=== PATIENT | male | born 1950 | race Caucasian/White ===

== ENCOUNTER 2017-06-24 18:17 | Emergency (ER) | payer OTHER, MEDICARE ==
[~2017-06-24] VITALS: Ht 170.2 cm; Wt 59.4 kg
[~2017-06-24 18:17] MED LIST: ALBU8.5H8 INH; ATOR40TA71 PO; CALC950T2 PO; CHOL400T32 PO; FISH OIL PO; FOLI-43 PO; FOLI0.8T19 PO; FURO80TA87 PO; LOSA100T13 PO; METO25TA6 PO; NOR5T PO; OXYC-658 PO; TERA10CA4 PO
[2017-06-24 20:13] LABS: BASOPHILS % (AUTO) 0.3 % (0-1); EOSINOPHILS # (AUTO) 0.1 X10'3 (0-0.9); EOSINOPHILS % (AUTO) 1.3 % (0-6); HEMATOCRIT 39.1 % (42.0-52.0); HEMOGLOBIN 13.1 g/dl (14.0-17.9); LYMPHOCYTES # (AUTO) 0.7 X10'3 (1.1-4.8); LYMPHOCYTES % (AUTO) 11.1 % (21-51); MEAN CORPUSCULAR HEMOGLOBIN 33.4 PG (27.0-31.0); MEAN CORPUSCULAR HGB CONC 33.5 % (33.0-36.5); MEAN CORPUSCULAR VOLUME 99.7 FL (78-98); MEAN PLATELET VOLUME 7.9 FL (7.4-10.4); MONOCYTES # (AUTO) 0.4 X10'3 (0-0.9); NEUTROPHILS # (AUTO) 4.9 X10'3 (1.8-7.7); NEUTROPHILS % (AUTO) 80.3 % (42-75); PLATELET COUNT 115 X10'3 (140-440); RED BLOOD COUNT 3.92 X10'6 (4.70-6.10); RED CELL DISTRIBUTION WIDTH 16.3 % (11.5-14.5); WHITE BLOOD COUNT 6.1 X10'3 (4.5-11.0)
[2017-06-24 20:23] LABS: INR 1.4 INR; PARTIAL THROMBOPLASTIN TIME 31 SECONDS (22-32); PROTHROMBIN TIME 14.2 SECONDS (9.0-12.0)
[2017-06-24 20:27] LABS: ALANINE AMINOTRANSFERASE 20 U/L (12-78); ALBUMIN 2.6 G/DL (3.4-5.0); ALBUMIN/GLOBULIN RATIO 0.8 (1.1-1.5); ALKALINE PHOSPHATASE 122 IU/L (46-116); ANION GAP 14 (8-16); ASPARTATE AMINO TRANSFERASE 30 U/L (10-37); BILIRUBIN,TOTAL 0.9 MG/DL (0.1-1.0); BLOOD UREA NITROGEN 23 MG/DL (7-18); BUN/CREATININE RATIO 6.1 (5.4-32.0); CHLORIDE 101 MMOL/L (99-107); CREATININE 3.75 MG/DL (0.60-1.10); ETHANOL < 0.010 GM/DL (0.0-0.010); GLUCOSE 92 MG/DL (70-104); LIPASE 143 U/L (73-393); POTASSIUM 3.6 MMOL/L (3.5-5.1); SODIUM 136 MMOL/L (135-145); TOTAL CARBON DIOXIDE 21.1 MMOL/L (24-32); TOTAL PROTEIN 5.8 G/DL (6.4-8.2); eGFR 16 ML/MIN
[2017-06-24 20:33] LABS: MAGNESIUM 0.7 MG/DL (1.5-2.4)
[2017-06-24] MEDS ORDERED: HYDROcodone/acetaminophen 10/325mg tab PO ONE (21:50)
[2017-06-24] MEDS ORDERED: magnesium oxide 400mg tablet PO ONE ×2 (22:10→22:20)
[2017-06-24] MEDS ORDERED: HYDR-569 PO (22:19)
[2017-06-24] MEDS ORDERED: MAGN200T8 PO (22:19)
[2017-06-24 22:36] VITALS: BP 128/76
== END 2017-06-24 22:42 | disposition home or self-care (01) ==
LOC: ER 18:17
DX: E83.42 Hypomagnesemia (principal); N18.9 Chronic kidney disease, unspecified; F11.23 Opioid dependence with withdrawal; I25.10 Atherosclerotic heart disease of native coronary artery without angina pectoris; I50.9 Heart failure, unspecified; I25.2 Old myocardial infarction; I49.9 Cardiac arrhythmia, unspecified; J44.9 Chronic obstructive pulmonary disease, unspecified; Z99.2 Dependence on renal dialysis; Z86.711 Personal history of pulmonary embolism; Z88.0 Allergy status to penicillin; Z88.8 Allergy status to other drugs, medicaments and biological substances; Z79.899 Other long term (current) drug therapy
CPT/HCPCS: 36415; 71045; 80053; 80320; 83690; 83735; 85025; 85610; 85730; 93005; 99285

== ENCOUNTER 2017-07-11 13:20 | Inpatient (IN) | payer OTHER, MEDICARE ==
[~2017-07-11] VITALS: Ht 170.2 cm; Wt 72.0 kg
[~2017-07-11 13:20] MED LIST changes: +HYDR-569 PO; +MAGN200T8 PO
[2017-07-11] MEDS ORDERED: ipratropium/albuterol 3ml nebule NEB PRN (15:20)
[2017-07-11] MEDS ORDERED: acetaminophen 325mg tablet PO PRN (15:20)
[2017-07-11] MEDS ORDERED: ondansetron/PF 4mg/2ml inj IV PRN (15:20)
[2017-07-11] MEDS ORDERED: HYDROcodone/acetaminophen 10/325mg tab PO PRN (15:20)
[2017-07-11] MEDS ORDERED: albuterol 2.5 MG/3 ML nebule NEB PRN ×2 (15:20→18:40)
[2017-07-11] MEDS ORDERED: HYDROmorphone inj. 0.5 MG/0.5 ML DISP.SYRIN IV PRN ×2 (15:20)
[2017-07-11] MEDS ORDERED: HYDROcodone/acetaminophen 5mg/325mg tablet PO PRN (15:20)
[2017-07-11] MEDS ORDERED: bisacodyl 10mg suppository rectal RC PRN (15:20)
[2017-07-11] MEDS ORDERED: diphenhydrAMINE 25mg capsule PO PRN (15:20)
[2017-07-11 16:15] VITALS: BP 137/73
[2017-07-11] MEDS ORDERED: APIX5TAB3 PO (16:38)
[2017-07-11] MEDS ORDERED: TOPI25TA15 PO (16:38)
[2017-07-11 17:31] LABS: BASOPHILS % (AUTO) 0.3 % (0-1); EOSINOPHILS # (AUTO) 0.1 X10'3 (0-0.9); EOSINOPHILS % (AUTO) 1.6 % (0-6); HEMATOCRIT 31.7 % (42.0-52.0); HEMOGLOBIN 10.7 g/dl (14.0-17.9); LYMPHOCYTES # (AUTO) 0.3 X10'3 (1.1-4.8); LYMPHOCYTES % (AUTO) 8.3 % (21-51); MEAN CORPUSCULAR HGB CONC 33.8 % (33.0-36.5); MEAN CORPUSCULAR VOLUME 100.4 FL (78-98); MONOCYTES # (AUTO) 0.3 X10'3 (0-0.9); MONOCYTES % (AUTO) 7.8 % (2-12); PLATELET COUNT 84 X10'3 (140-440); RED BLOOD COUNT 3.16 X10'6 (4.70-6.10); RED CELL DISTRIBUTION WIDTH 16.8 % (11.5-14.5); WHITE BLOOD COUNT 3.7 X10'3 (4.5-11.0)
[2017-07-11 17:47] LABS: ALANINE AMINOTRANSFERASE 36 U/L (12-78); ALBUMIN 2.4 G/DL (3.4-5.0); ALBUMIN/GLOBULIN RATIO 0.7 (1.1-1.5); ALKALINE PHOSPHATASE 140 IU/L (46-116); ANION GAP 9 (8-16); ASPARTATE AMINO TRANSFERASE 35 U/L (10-37); BILIRUBIN,TOTAL 0.7 MG/DL (0.1-1.0); BLOOD UREA NITROGEN 22 MG/DL (7-18); BUN/CREATININE RATIO 9.9 (5.4-32.0); CALCIUM 7.2 MG/DL (8.5-10.1); CHLORIDE 105 MMOL/L (99-107); CREATININE 2.23 MG/DL (0.60-1.10); GLUCOSE 95 MG/DL (70-104); MAGNESIUM 1.2 MG/DL (1.5-2.4); POTASSIUM 4.2 MMOL/L (3.5-5.1); SODIUM 141 MMOL/L (135-145); TOTAL CARBON DIOXIDE 27.5 MMOL/L (24-32); TOTAL PROTEIN 5.8 G/DL (6.4-8.2); eGFR 30 ML/MIN
[2017-07-11 17:57] LABS: HEMOGLOBIN A1C 4.5 % (4.5-6.2)
[2017-07-11] MEDS ORDERED: non-formulary drug (Albuterol Sulfate (Proair Hfa) 2 PUFFS) INH SCH (18:00)
[2017-07-11 18:02] LABS: PHOSPHORUS 1.2 MG/DL (2.3-4.5)
[2017-07-11] MEDS ORDERED: potassium Cl 20 mEq SR tablet PO PRN ×2 (18:10)
[2017-07-11] MEDS ORDERED: sodium phosphate inj. 30 MMOL in dextrose 5%-water 240 ML IV ONE (18:10)
[2017-07-11 19:00] VITALS: BP 126/61
[2017-07-11] MEDS: heparin, porcine 5000 units/ml vial SQ SCH (20:00)
[2017-07-11] MEDS: HYDROcodone/acetaminophen 5mg/325mg tablet PO SCH (20:00)
[2017-07-11] MEDS: topiramate 25mg tablet PO SCH (20:00)
[2017-07-11] MEDS ORDERED: FISH OIL 500 MG PO SCH (20:00)
[2017-07-11] MEDS: apixaban 5mg tablet PO SCH (20:54)
[2017-07-11] MEDS: docusate sod 100mg capsule PO SCH (20:54)
[2017-07-11] MEDS: atorvastatin 20mg tablet PO SCH (20:55)
[2017-07-11] MEDS: amLODIPine 5mg tablet PO SCH (20:55)
[2017-07-11] MEDS: furosemide 40mg tablet PO SCH (20:55)
[2017-07-11] MEDS: oxyCODONE IR 5mg (immed. release) tablet PO PRN (20:56)
[2017-07-11] MEDS: magnesium Cl slow-release 64mg tablet PO PRN (20:56)
[2017-07-11] MEDS: metoprolol tartrate 12.5mg (1/2 tablet) PO SCH (20:59)
[2017-07-11] MEDS ORDERED: FUROSEMIDE PO SCH (21:00)
[2017-07-11] MEDS ORDERED: non-formulary drug (Atorvastatin Calcium 1 TABLET) PO SCH (21:00)
[2017-07-11] MEDS ORDERED: non-formulary drug (Terazosin HCl 1 CAP) PO SCH (21:00)
[2017-07-11] MEDS: terazosin 5mg capsule PO SCH (21:00)
[2017-07-11 23:00] VITALS: BP 109/57
[2017-07-12] MEDS ORDERED: morphine 4 MG/ML inj SYRINge IV ONE (00:10)
[2017-07-12 03:00] VITALS: BP 123/67
[2017-07-12] MEDS: HYDROcodone/acetaminophen 5mg/325mg tablet PO SCH ×6 (04:00→20:00)
[2017-07-12 05:38] LABS: BASOPHILS % (AUTO) 0.5 % (0-1); EOSINOPHILS % (AUTO) 1.4 % (0-6); HEMOGLOBIN 10.3 g/dl (14.0-17.9); LYMPHOCYTES # (AUTO) 0.4 X10'3 (1.1-4.8); LYMPHOCYTES % (AUTO) 12.4 % (21-51); MEAN CORPUSCULAR HGB CONC 34.4 % (33.0-36.5); MEAN CORPUSCULAR VOLUME 98.9 FL (78-98); MEAN PLATELET VOLUME 7.8 FL (7.4-10.4); MONOCYTES # (AUTO) 0.3 X10'3 (0-0.9); MONOCYTES % (AUTO) 9.2 % (2-12); NEUTROPHILS # (AUTO) 2.6 X10'3 (1.8-7.7); NEUTROPHILS % (AUTO) 76.5 % (42-75); PLATELET COUNT 78 X10'3 (140-440); RED BLOOD COUNT 3.03 X10'6 (4.70-6.10); RED CELL DISTRIBUTION WIDTH 17.3 % (11.5-14.5); WHITE BLOOD COUNT 3.4 X10'3 (4.5-11.0)
[2017-07-12 05:57] LABS: ALBUMIN 2.2 G/DL (3.4-5.0); ANION GAP 9 (8-16); BLOOD UREA NITROGEN 28 MG/DL (7-18); BUN/CREATININE RATIO 11.2 (5.4-32.0); CALCIUM 6.9 MG/DL (8.5-10.1); CHLORIDE 104 MMOL/L (99-107); CREATININE 2.51 MG/DL (0.60-1.10); GLUCOSE 90 MG/DL (70-104); PHOSPHORUS 2.8 MG/DL (2.3-4.5); POTASSIUM 3.9 MMOL/L (3.5-5.1); SODIUM 141 MMOL/L (135-145); TOTAL CARBON DIOXIDE 27.7 MMOL/L (24-32); eGFR 26 ML/MIN
[2017-07-12 06:00] VITALS: BP 99/55
[2017-07-12] MEDS: apixaban 5mg tablet PO SCH ×2 (07:45→20:49)
[2017-07-12] MEDS: OMEGA-3/DHA/EPA/FISH OIL 1 EACH CAPSULE.DR PO SCH (07:45)
[2017-07-12] MEDS: folic acid 1mg tablet PO SCH (07:45)
[2017-07-12] MEDS: magnesium Cl slow-release 64mg tablet PO PRN (07:46)
[2017-07-12] MEDS: topiramate 25mg tablet PO SCH ×2 (07:46→20:00)
[2017-07-12] MEDS: vitamin D (cholecalciferol) 1,000 unit tablet PO SCH (07:46)
[2017-07-12] MEDS: magnesium oxide 400mg tablet PO SCH (07:46)
[2017-07-12] MEDS: folic acid/vitamin B complex w/vitamin C 0.8mg tablet PO SCH (07:47)
[2017-07-12] MEDS: heparin, porcine 5000 units/ml vial SQ SCH (07:47)
[2017-07-12] MEDS: docusate sod 100mg capsule PO SCH ×2 (07:47→20:49)
[2017-07-12] MEDS: oxyCODONE IR 5mg (immed. release) tablet PO PRN ×3 (07:51→22:05)
[2017-07-12] MEDS ORDERED: epoetin 20,000 units/ml inj IV ONE (08:00)
[2017-07-12] MEDS ORDERED: LOSARTAN PO SCH (08:00)
[2017-07-12] MEDS ORDERED: albumin (human) 25% 100ml IV 100 ML IV PRN (08:00)
[2017-07-12] MEDS ORDERED: MAGNESIUM OXIDE PO SCH (08:00)
[2017-07-12] MEDS: CALCIUM CITRATE 200 MG PO SCH (08:00)
[2017-07-12] MEDS ORDERED: heparin 1,000unit/ml 10ml vial 10 ML IV ONE (08:00)
[2017-07-12] MEDS: furosemide 40mg tablet PO SCH ×3 (08:00→21:00)
[2017-07-12] MEDS ORDERED: heparin 1,000 units/ml 10ml inj IV ONE (08:00)
[2017-07-12] MEDS ORDERED: CALCIUM CITRATE PO SCH (08:00)
[2017-07-12] MEDS: metoprolol tartrate 12.5mg (1/2 tablet) PO SCH ×2 (08:00→20:50)
[2017-07-12] MEDS: losartan 50mg tablet PO SCH (08:00)
[2017-07-12] MEDS ORDERED: LIDOcaine 1% (10mg/ml) 2ml vial SQ ONE (08:25)
[2017-07-12 11:00] VITALS: BP 123/77
[2017-07-12] MEDS ORDERED: magnesium 4gm in 100ml NS 100 ML IV ONE (12:00)
[2017-07-12] MEDS ORDERED: PANT40TA4 PO (13:21)
[2017-07-12] MEDS ORDERED: ALB0.5UD IH (13:23)
[2017-07-12] MEDS ORDERED: [UNRECOGNIZED DRUG - OTHER] (13:29)
[2017-07-12] MEDS ORDERED: MAGN400T6 (13:30)
[2017-07-12 15:26] VITALS: BP 105/61
[2017-07-12 19:00] VITALS: BP 150/87
[2017-07-12] MEDS: amLODIPine 5mg tablet PO SCH (20:49)
[2017-07-12] MEDS: atorvastatin 20mg tablet PO SCH (20:49)
[2017-07-12] MEDS: terazosin 5mg capsule PO SCH (20:50)
[2017-07-12 23:00] VITALS: BP 115/71
[2017-07-13 03:00] VITALS: BP 94/67
[2017-07-13] MEDS: HYDROcodone/acetaminophen 5mg/325mg tablet PO SCH ×8 (04:00→22:56)
[2017-07-13] MEDS: oxyCODONE IR 5mg (immed. release) tablet PO PRN ×3 (05:34→18:05)
[2017-07-13 06:15] LABS: BASOPHILS % (AUTO) 0.5 % (0-1); EOSINOPHILS # (AUTO) 0.1 X10'3 (0-0.9); EOSINOPHILS % (AUTO) 1.7 % (0-6); HEMATOCRIT 31.5 % (42.0-52.0); HEMOGLOBIN 10.6 g/dl (14.0-17.9); LYMPHOCYTES # (AUTO) 0.3 X10'3 (1.1-4.8); LYMPHOCYTES % (AUTO) 8.8 % (21-51); MEAN CORPUSCULAR HEMOGLOBIN 33.4 PG (27.0-31.0); MEAN CORPUSCULAR HGB CONC 33.7 % (33.0-36.5); MEAN PLATELET VOLUME 7.7 FL (7.4-10.4); MONOCYTES # (AUTO) 0.3 X10'3 (0-0.9); MONOCYTES % (AUTO) 9.6 % (2-12); NEUTROPHILS # (AUTO) 2.6 X10'3 (1.8-7.7); NEUTROPHILS % (AUTO) 79.4 % (42-75); PLATELET COUNT 77 X10'3 (140-440); RED BLOOD COUNT 3.18 X10'6 (4.70-6.10); RED CELL DISTRIBUTION WIDTH 16.8 % (11.5-14.5); WHITE BLOOD COUNT 3.3 X10'3 (4.5-11.0)
[2017-07-13 06:26] LABS: ALBUMIN 2.3 G/DL (3.4-5.0); ANION GAP 9 (8-16); BLOOD UREA NITROGEN 19 MG/DL (7-18); BUN/CREATININE RATIO 9.8 (5.4-32.0); CALCIUM 7.4 MG/DL (8.5-10.1); CHLORIDE 103 MMOL/L (99-107); CREATININE 1.93 MG/DL (0.60-1.10); GLUCOSE 97 MG/DL (70-104); MAGNESIUM 1.7 MG/DL (1.5-2.4); PHOSPHORUS 1.8 MG/DL (2.3-4.5); POTASSIUM 4.1 MMOL/L (3.5-5.1); SODIUM 141 MMOL/L (135-145); TOTAL CARBON DIOXIDE 28.9 MMOL/L (24-32); eGFR 35 ML/MIN
[2017-07-13 06:58] VITALS: BP 112/75
[2017-07-13] MEDS: vitamin D (cholecalciferol) 1,000 unit tablet PO SCH (07:14)
[2017-07-13] MEDS: folic acid 1mg tablet PO SCH (07:14)
[2017-07-13] MEDS: docusate sod 100mg capsule PO SCH ×2 (07:14→20:15)
[2017-07-13] MEDS: folic acid/vitamin B complex w/vitamin C 0.8mg tablet PO SCH (07:14)
[2017-07-13] MEDS: apixaban 5mg tablet PO SCH ×2 (07:14→18:57)
[2017-07-13] MEDS: magnesium oxide 400mg tablet PO SCH (07:16)
[2017-07-13] MEDS: OMEGA-3/DHA/EPA/FISH OIL 1 EACH CAPSULE.DR PO SCH (07:17)
[2017-07-13] MEDS: losartan 50mg tablet PO SCH (07:28)
[2017-07-13] MEDS: metoprolol tartrate 12.5mg (1/2 tablet) PO SCH ×2 (07:29→20:16)
[2017-07-13] MEDS: furosemide 40mg tablet PO SCH ×3 (07:29→20:18)
[2017-07-13] MEDS: topiramate 25mg tablet PO SCH ×2 (07:31→20:17)
[2017-07-13] MEDS ORDERED: albumin (human) 25% 100ml IV 100 ML IV PRN (08:00)
[2017-07-13] MEDS ORDERED: heparin 1,000 units/ml 10ml inj IV ONE (08:00)
[2017-07-13] MEDS ORDERED: heparin 1,000unit/ml 10ml vial 10 ML IV ONE (08:00)
[2017-07-13] MEDS: CALCIUM CITRATE 200 MG PO SCH (08:00)
[2017-07-13] MEDS ORDERED: LIDOcaine 1% (10mg/ml) 2ml vial SQ ONE (08:55)
[2017-07-13 11:00] VITALS: BP 99/64
[2017-07-13] MEDS: celeCOXIB 100mg capsule PO SCH (12:34)
[2017-07-13 15:00] VITALS: BP 116/62
[2017-07-13 18:00] VITALS: BP 106/51
[2017-07-13] MEDS: terazosin 5mg capsule PO SCH (20:14)
[2017-07-13] MEDS: atorvastatin 20mg tablet PO SCH (20:18)
[2017-07-13] MEDS: amLODIPine 5mg tablet PO SCH (20:19)
[2017-07-13] MEDS: temazepam 15mg capsule PO PRN (21:06)
[2017-07-13 22:00] VITALS: BP 109/59
[2017-07-14] VITALS (7 sets, daily range): BP systolic 113–129; BP diastolic 47–67
[2017-07-14] MEDS: oxyCODONE IR 5mg (immed. release) tablet PO PRN ×4 (00:28→19:31)
[2017-07-14 06:02] LABS: BASOPHILS % (AUTO) 0.5 % (0-1); EOSINOPHILS # (AUTO) 0.1 X10'3 (0-0.9); EOSINOPHILS % (AUTO) 1.9 % (0-6); HEMOGLOBIN 10.6 g/dl (14.0-17.9); LYMPHOCYTES # (AUTO) 0.3 X10'3 (1.1-4.8); LYMPHOCYTES % (AUTO) 8.6 % (21-51); MEAN CORPUSCULAR HEMOGLOBIN 33.3 PG (27.0-31.0); MEAN CORPUSCULAR HGB CONC 33.3 % (33.0-36.5); MEAN CORPUSCULAR VOLUME 100.2 FL (78-98); MEAN PLATELET VOLUME 7.8 FL (7.4-10.4); MONOCYTES # (AUTO) 0.4 X10'3 (0-0.9); MONOCYTES % (AUTO) 12.7 % (2-12); NEUTROPHILS # (AUTO) 2.6 X10'3 (1.8-7.7); NEUTROPHILS % (AUTO) 76.3 % (42-75); PLATELET COUNT 84 X10'3 (140-440); RED BLOOD COUNT 3.19 X10'6 (4.70-6.10); RED CELL DISTRIBUTION WIDTH 16.5 % (11.5-14.5); WHITE BLOOD COUNT 3.4 X10'3 (4.5-11.0)
[2017-07-14 06:09] LABS: ALBUMIN 2.3 G/DL (3.4-5.0); ANION GAP 7 (8-16); BLOOD UREA NITROGEN 20 MG/DL (7-18); BUN/CREATININE RATIO 10.5 (5.4-32.0); CALCIUM 7.6 MG/DL (8.5-10.1); CHLORIDE 102 MMOL/L (99-107); GLUCOSE 92 MG/DL (70-104); MAGNESIUM 1.5 MG/DL (1.5-2.4); PHOSPHORUS 1.4 MG/DL (2.3-4.5); SODIUM 140 MMOL/L (135-145); TOTAL CARBON DIOXIDE 30.7 MMOL/L (24-32); eGFR 36 ML/MIN
[2017-07-14] MEDS: HYDROcodone/acetaminophen 5mg/325mg tablet PO SCH ×2 (06:31→11:10)
[2017-07-14] MEDS: apixaban 5mg tablet PO SCH ×2 (06:31→20:54)
[2017-07-14] MEDS: CALCIUM CITRATE 200 MG PO SCH (06:32)
[2017-07-14] MEDS: metoprolol tartrate 12.5mg (1/2 tablet) PO SCH ×2 (07:54→20:54)
[2017-07-14] MEDS: furosemide 40mg tablet PO SCH ×3 (07:55→20:52)
[2017-07-14] MEDS: celeCOXIB 100mg capsule PO SCH (07:55)
[2017-07-14] MEDS: folic acid 1mg tablet PO SCH (07:55)
[2017-07-14] MEDS: folic acid/vitamin B complex w/vitamin C 0.8mg tablet PO SCH (07:55)
[2017-07-14] MEDS: vitamin D (cholecalciferol) 1,000 unit tablet PO SCH (07:56)
[2017-07-14] MEDS: magnesium oxide 400mg tablet PO SCH (07:56)
[2017-07-14] MEDS: topiramate 25mg tablet PO SCH ×2 (07:56→20:52)
[2017-07-14] MEDS: docusate sod 100mg capsule PO SCH ×2 (07:57→20:49)
[2017-07-14] MEDS: losartan 50mg tablet PO SCH (07:57)
[2017-07-14] MEDS: OMEGA-3/DHA/EPA/FISH OIL 1 EACH CAPSULE.DR PO SCH (07:59)
[2017-07-14] MEDS: amLODIPine 5mg tablet PO SCH (20:50)
[2017-07-14] MEDS: terazosin 5mg capsule PO SCH (20:51)
[2017-07-14] MEDS: temazepam 15mg capsule PO PRN (20:52)
[2017-07-14] MEDS: atorvastatin 20mg tablet PO SCH (20:54)
[2017-07-15] VITALS: BP 108/59
[2017-07-15] MEDS: oxyCODONE IR 5mg (immed. release) tablet PO PRN ×3 (00:34→08:16)
[2017-07-15 06:24] LABS: BASOPHILS % (AUTO) 0.4 % (0-1); EOSINOPHILS % (AUTO) 1.3 % (0-6); HEMATOCRIT 30.8 % (42.0-52.0); HEMOGLOBIN 10.4 g/dl (14.0-17.9); LYMPHOCYTES # (AUTO) 0.4 X10'3 (1.1-4.8); MEAN CORPUSCULAR HEMOGLOBIN 33.6 PG (27.0-31.0); MEAN CORPUSCULAR HGB CONC 33.8 % (33.0-36.5); MEAN CORPUSCULAR VOLUME 99.7 FL (78-98); MEAN PLATELET VOLUME 8.1 FL (7.4-10.4); MONOCYTES # (AUTO) 0.4 X10'3 (0-0.9); MONOCYTES % (AUTO) 10.9 % (2-12); NEUTROPHILS # (AUTO) 2.5 X10'3 (1.8-7.7); NEUTROPHILS % (AUTO) 75.4 % (42-75); PLATELET COUNT 87 X10'3 (140-440); RED CELL DISTRIBUTION WIDTH 16.8 % (11.5-14.5); WHITE BLOOD COUNT 3.3 X10'3 (4.5-11.0)
[2017-07-15 06:25] LABS: ALBUMIN 2.4 G/DL (3.4-5.0); ANION GAP 8 (8-16); BLOOD UREA NITROGEN 34 MG/DL (7-18); BUN/CREATININE RATIO 11.2 (5.4-32.0); CALCIUM 7.8 MG/DL (8.5-10.1); CHLORIDE 100 MMOL/L (99-107); CREATININE 3.03 MG/DL (0.60-1.10); GLUCOSE 97 MG/DL (70-104); MAGNESIUM 1.3 MG/DL (1.5-2.4); PHOSPHORUS 1.6 MG/DL (2.3-4.5); POTASSIUM 4.6 MMOL/L (3.5-5.1); SODIUM 138 MMOL/L (135-145); TOTAL CARBON DIOXIDE 29.8 MMOL/L (24-32); eGFR 21 ML/MIN
[2017-07-15 08:00] VITALS: BP 122/75
[2017-07-15] MEDS: CALCIUM CITRATE 200 MG PO SCH (08:00)
[2017-07-15] MEDS: docusate sod 100mg capsule PO SCH (08:14)
[2017-07-15] MEDS: vitamin D (cholecalciferol) 1,000 unit tablet PO SCH (08:14)
[2017-07-15] MEDS: celeCOXIB 100mg capsule PO SCH (08:14)
[2017-07-15] MEDS: topiramate 25mg tablet PO SCH (08:15)
[2017-07-15] MEDS: folic acid/vitamin B complex w/vitamin C 0.8mg tablet PO SCH (08:15)
[2017-07-15] MEDS: apixaban 5mg tablet PO SCH (08:15)
[2017-07-15] MEDS: magnesium oxide 400mg tablet PO SCH (08:15)
[2017-07-15] MEDS: folic acid 1mg tablet PO SCH (08:15)
[2017-07-15] MEDS ORDERED: MAGN400C PO (08:58)
[2017-07-15] MEDS ORDERED: CELE100C98 PO (08:58)
[2017-07-15] MEDS: furosemide 40mg tablet PO SCH (09:12)
[2017-07-15] MEDS: metoprolol tartrate 12.5mg (1/2 tablet) PO SCH (09:12)
[2017-07-15] MEDS: losartan 50mg tablet PO SCH (09:12)
[2017-07-15] MEDS: OMEGA-3/DHA/EPA/FISH OIL 1 EACH CAPSULE.DR PO SCH (10:08)
[2017-07-15 10:51] VITALS: BP 116/60
== END 2017-07-15 12:00 | disposition home or self-care (01) | DRG 291 ==
LOC: PCU 3S 15:56 → MED 3N 07-14 17:44
PROVIDERS: ADMIT Internal Medicine Critical Care Medicine; ATTEND Internal Medicine Critical Care Medicine
PROC: 5A1D70Z Performance of Urinary Filtration, Intermittent, Less than 6 Hours Per Day (ICD-10-PCS; principal; 2017-07-12)
PROC: 5A1D70Z Performance of Urinary Filtration, Intermittent, Less than 6 Hours Per Day (ICD-10-PCS; 2017-07-13)
PROC: 0W9G3ZZ Drainage of Peritoneal Cavity, Percutaneous Approach (ICD-10-PCS; 2017-07-14)
DX: I13.2 Hypertensive heart and chronic kidney disease with heart failure and with stage 5 chronic kidney disease, or end stage renal disease (principal); I50.23 Acute on chronic systolic (congestive) heart failure; N18.6 End stage renal disease; I73.9 Peripheral vascular disease, unspecified; J44.9 Chronic obstructive pulmonary disease, unspecified; R18.8 Other ascites; I25.10 Atherosclerotic heart disease of native coronary artery without angina pectoris; H26.9 Unspecified cataract; I99.8 Other disorder of circulatory system; R62.7 Adult failure to thrive; F17.200 Nicotine dependence, unspecified, uncomplicated; Z99.2 Dependence on renal dialysis; Z79.01 Long term (current) use of anticoagulants; Z79.899 Other long term (current) drug therapy; Z95.820 Peripheral vascular angioplasty status with implants and grafts; Z88.0 Allergy status to penicillin; Z88.8 Allergy status to other drugs, medicaments and biological substances; Z86.711 Personal history of pulmonary embolism; Z87.01 Personal history of pneumonia (recurrent); Z80.3 Family history of malignant neoplasm of breast; Z82.49 Family history of ischemic heart disease and other diseases of the circulatory system; Z83.3 Family history of diabetes mellitus
CPT/HCPCS: 36415; 49083; 71045; 73630; 80048; 80053; 83036; 83735; 83880; 84100; 85025; 87070; 93922; 94640; 94760; 97116; 97161; 97530; A6402; G0257; J0885; J1644; J2270; J3475; J3490; J7030; J7060

== ENCOUNTER 2017-07-26 14:39 | Inpatient (IN) | payer OTHER, MEDICARE ==
[~2017-07-26] VITALS: Ht 170.2 cm; Wt 70.9 kg
[~2017-07-26 14:39] MED LIST changes: +ALB0.5UD IH; -ALBU8.5H8 INH; +APIX5TAB3 PO; +CELE100C98 PO; -FISH OIL PO; -FOLI0.8T19 PO; -HYDR-569 PO; -MAGN200T8 PO; +MAGN400C PO; +PANT40TA4 PO; +TOPI25TA15 PO; +[UNRECOGNIZED DRUG - OTHER]
[2017-07-26] MEDS ORDERED: oxyCODONE/APAP 10/325mg tablet PO ONE (16:20)
[2017-07-26 16:35] LABS: BASOPHILS % (AUTO) 0.2 % (0-1); EOSINOPHILS # (AUTO) 0.1 X10'3 (0-0.9); EOSINOPHILS % (AUTO) 1.8 % (0-6); HEMATOCRIT 31.5 % (42.0-52.0); HEMOGLOBIN 10.5 g/dl (14.0-17.9); LYMPHOCYTES # (AUTO) 0.5 X10'3 (1.1-4.8); MEAN CORPUSCULAR HEMOGLOBIN 32.8 PG (27.0-31.0); MEAN CORPUSCULAR HGB CONC 33.4 % (33.0-36.5); MEAN CORPUSCULAR VOLUME 98.1 FL (78-98); MEAN PLATELET VOLUME 7.2 FL (7.4-10.4); MONOCYTES # (AUTO) 0.4 X10'3 (0-0.9); MONOCYTES % (AUTO) 6.9 % (2-12); NEUTROPHILS # (AUTO) 4.8 X10'3 (1.8-7.7); NEUTROPHILS % (AUTO) 83.1 % (42-75); PLATELET COUNT 141 X10'3 (140-440); RED BLOOD COUNT 3.21 X10'6 (4.70-6.10); RED CELL DISTRIBUTION WIDTH 17.1 % (11.5-14.5); WHITE BLOOD COUNT 5.8 X10'3 (4.5-11.0)
[2017-07-26 16:47] LABS: INR 1.4 INR; PARTIAL THROMBOPLASTIN TIME 33 SECONDS (22-32); PROTHROMBIN TIME 14.3 SECONDS (9.0-12.0)
[2017-07-26 16:59] LABS: ALANINE AMINOTRANSFERASE 26 U/L (12-78); ALBUMIN 2.4 G/DL (3.4-5.0); ALBUMIN/GLOBULIN RATIO 0.8 (1.1-1.5); ALKALINE PHOSPHATASE 169 IU/L (46-116); ANION GAP 9 (8-16); ASPARTATE AMINO TRANSFERASE 34 U/L (10-37); BLOOD UREA NITROGEN 36 MG/DL (7-18); BUN/CREATININE RATIO 6.9 (5.4-32.0); CALCIUM 8.5 MG/DL (8.5-10.1); CHLORIDE 102 MMOL/L (99-107); CREATININE 5.22 MG/DL (0.60-1.10); GLUCOSE 115 MG/DL (70-104); MAGNESIUM 1.1 MG/DL (1.5-2.4); SODIUM 137 MMOL/L (135-145); TOTAL CARBON DIOXIDE 25.6 MMOL/L (24-32); TOTAL PROTEIN 5.6 G/DL (6.4-8.2); eGFR 11 ML/MIN
[2017-07-26 17:27] LABS: CLARITY,URINE CLEAR (Clear); COLOR,URINE YELLOW (Yellow); GLUCOSE, URINE NEGATIVE (Neg); KETONES,URINE NEGATIVE (Neg); LEUKOCYTE ESTERASE ,URINE NEGATIVE (Neg); NITRITES, URINE NEGATIVE (Neg); OCCULT BLOOD,URINE TRACE-INTACT (Neg); PH,URINE 5.5 (4.8-8.0); PROTEIN,URINE TRACE mg/dl (Neg); UROBILINOGEN,URINE 0.2 E.U/dL (0.2-1.0)
[2017-07-26 17:33] LABS: UA COLLECTION TYPE CLN CATCH MIDSTREAM
[2017-07-26] MEDS ORDERED: mag hydrox/Alum hydrox/simeth 30ml oral suspension PO PRN (17:45)
[2017-07-26] MEDS ORDERED: magnesium hydroxide 30ml (MOM) UD suspension PO PRN (17:45)
[2017-07-26] MEDS ORDERED: ondansetron/PF 4mg/2ml inj IV PRN ×2 (17:45→17:55)
[2017-07-26 17:48] LABS: HYALINE CASTS 0-3 /LPF (NEGATIVE); SQUAMOUS EPITHELIAL CELL,UR FEW /LPF (FEW)
[2017-07-26 17:49] LABS: BACTERIA,URINE FEW /HPF (Neg); MUCUS STRANDS FEW /LPF (Neg); SPERM FEW /HPF (NEGATIVE); TRANSITIONAL EPI CELLS,URINE FEW /HPF
[2017-07-26 17:50] LABS: RBC,URINE 0-2 /HPF (0-2); WBC,URINE 0-4 /HPF (0-4)
[2017-07-26] MEDS ORDERED: heparin 1,000unit/ml 10ml vial 10 ML IV ONE (18:02)
[2017-07-26] MEDS ORDERED: normal saline 1000ml 250 ML IV PRN (18:02)
[2017-07-26] MEDS ORDERED: heparin 1,000 units/ml 10ml inj IV ONE (18:05)
[2017-07-26] MEDS ORDERED: LIDOcaine 1% (10mg/ml) 2ml vial SQ ONE (18:05)
[2017-07-26] MEDS ORDERED: albumin (human) 25% 100ml IV 100 ML IV PRN (18:05)
[2017-07-26] MEDS ORDERED: albuterol 2.5 MG/3 ML nebule NEB PRN (18:40)
[2017-07-26] MEDS: topiramate 25mg tablet PO SCH (20:00)
[2017-07-26 22:00] VITALS: BP 107/56
[2017-07-27] MEDS ORDERED: heparin, porcine 5000 units/ml vial SQ SCH
[2017-07-27 03:00] VITALS: BP 102/56
[2017-07-27] MEDS: docusate sod 100mg capsule PO SCH ×3 (03:02→20:29)
[2017-07-27] MEDS: apixaban 5mg tablet PO SCH ×3 (03:03→20:28)
[2017-07-27] MEDS: metoprolol tartrate 25mg tablet PO SCH ×3 (03:04→20:00)
[2017-07-27] MEDS: magnesium oxide 400mg tablet PO SCH ×3 (03:09→20:27)
[2017-07-27] MEDS: oxyCODONE IR 5mg (immed. release) tablet PO PRN ×2 (03:11→20:28)
[2017-07-27] MEDS: atorvastatin 20mg tablet PO SCH ×2 (03:12→20:27)
[2017-07-27] MEDS: furosemide 40mg tablet PO SCH ×4 (03:12→20:38)
[2017-07-27] MEDS: amLODIPine 5mg tablet PO SCH ×2 (04:37→20:37)
[2017-07-27] MEDS: terazosin 5mg capsule PO SCH ×2 (04:37→20:39)
[2017-07-27 05:34] LABS: BASOPHILS % (AUTO) 0.4 % (0-1); EOSINOPHILS # (AUTO) 0.1 X10'3 (0-0.9); EOSINOPHILS % (AUTO) 1.9 % (0-6); HEMATOCRIT 33.5 % (42.0-52.0); HEMOGLOBIN 11.3 g/dl (14.0-17.9); LYMPHOCYTES # (AUTO) 0.5 X10'3 (1.1-4.8); LYMPHOCYTES % (AUTO) 9.8 % (21-51); MEAN CORPUSCULAR HEMOGLOBIN 32.7 PG (27.0-31.0); MEAN CORPUSCULAR HGB CONC 33.5 % (33.0-36.5); MEAN CORPUSCULAR VOLUME 97.6 FL (78-98); MEAN PLATELET VOLUME 7.7 FL (7.4-10.4); MONOCYTES # (AUTO) 0.4 X10'3 (0-0.9); MONOCYTES % (AUTO) 7.2 % (2-12); NEUTROPHILS # (AUTO) 4.1 X10'3 (1.8-7.7); NEUTROPHILS % (AUTO) 80.7 % (42-75); PLATELET COUNT 141 X10'3 (140-440); RED BLOOD COUNT 3.44 X10'6 (4.70-6.10); RED CELL DISTRIBUTION WIDTH 16.9 % (11.5-14.5); WHITE BLOOD COUNT 5.1 X10'3 (4.5-11.0)
[2017-07-27 05:50] LABS: ALANINE AMINOTRANSFERASE 24 U/L (12-78); ALBUMIN 2.3 G/DL (3.4-5.0); ALBUMIN/GLOBULIN RATIO 0.7 (1.1-1.5); ALKALINE PHOSPHATASE 174 IU/L (46-116); ANION GAP 9 (8-16); ASPARTATE AMINO TRANSFERASE 29 U/L (10-37); BILIRUBIN,TOTAL 0.9 MG/DL (0.1-1.0); BLOOD UREA NITROGEN 22 MG/DL (7-18); BUN/CREATININE RATIO 5.9 (5.4-32.0); CHLORIDE 103 MMOL/L (99-107); CREATININE 3.71 MG/DL (0.60-1.10); GLUCOSE 108 MG/DL (70-104); POTASSIUM 3.9 MMOL/L (3.5-5.1); SODIUM 140 MMOL/L (135-145); TOTAL CARBON DIOXIDE 28.4 MMOL/L (24-32); TOTAL PROTEIN 5.6 G/DL (6.4-8.2); eGFR 16 ML/MIN
[2017-07-27 07:00] VITALS: BP 94/55
[2017-07-27 07:04] LABS: MAGNESIUM 1.2 MG/DL (1.5-2.4)
[2017-07-27] MEDS: topiramate 25mg tablet PO SCH ×2 (08:00→20:36)
[2017-07-27] MEDS: celeCOXIB 100mg capsule PO SCH (08:54)
[2017-07-27] MEDS: calcium carbonate 500mg chew tablet PO SCH (08:55)
[2017-07-27] MEDS: folic acid 1mg tablet PO SCH (08:55)
[2017-07-27] MEDS: pantoprazole 40mg Tablet.DR PO SCH (08:55)
[2017-07-27] MEDS: losartan 50mg tablet PO SCH (08:55)
[2017-07-27] MEDS: vitamin D (cholecalciferol) 1,000 unit tablet PO SCH (08:55)
[2017-07-27] MEDS: magnesium Cl slow-release 64mg tablet PO SCH ×2 (09:20→20:28)
[2017-07-27 11:00] VITALS: BP 87/47
[2017-07-27] MEDS ORDERED: normal saline 1000ml 250 ML IV PRN (13:13)
[2017-07-27] MEDS ORDERED: normal saline 1000ml 100 ML IV PRN (13:13)
[2017-07-27] MEDS ORDERED: LIDOcaine 1% (10mg/ml) 2ml vial SQ ONE (13:15)
[2017-07-27 15:00] VITALS: BP 108/58
[2017-07-27 19:00] VITALS: BP 88/47
[2017-07-27 23:00] VITALS: BP 128/75
[2017-07-28 03:00] VITALS: BP 108/65
[2017-07-28 05:30] VITALS: BP 102/60
[2017-07-28 05:44] LABS: BASOPHILS % (AUTO) 0.1 % (0-1); EOSINOPHILS # (AUTO) 0.1 X10'3 (0-0.9); EOSINOPHILS % (AUTO) 1.9 % (0-6); HEMATOCRIT 30.6 % (42.0-52.0); HEMOGLOBIN 10.3 g/dl (14.0-17.9); LYMPHOCYTES # (AUTO) 0.4 X10'3 (1.1-4.8); LYMPHOCYTES % (AUTO) 6.5 % (21-51); MEAN CORPUSCULAR HGB CONC 33.6 % (33.0-36.5); MEAN CORPUSCULAR VOLUME 98.3 FL (78-98); MEAN PLATELET VOLUME 7.7 FL (7.4-10.4); MONOCYTES # (AUTO) 0.4 X10'3 (0-0.9); MONOCYTES % (AUTO) 6.1 % (2-12); NEUTROPHILS # (AUTO) 5.7 X10'3 (1.8-7.7); NEUTROPHILS % (AUTO) 85.4 % (42-75); PLATELET COUNT 133 X10'3 (140-440); RED BLOOD COUNT 3.11 X10'6 (4.70-6.10); RED CELL DISTRIBUTION WIDTH 16.9 % (11.5-14.5); WHITE BLOOD COUNT 6.7 X10'3 (4.5-11.0)
[2017-07-28 05:56] LABS: ALANINE AMINOTRANSFERASE 21 U/L (12-78); ALBUMIN 2.1 G/DL (3.4-5.0); ALBUMIN/GLOBULIN RATIO 0.7 (1.1-1.5); ALKALINE PHOSPHATASE 159 IU/L (46-116); ANION GAP 7 (8-16); ASPARTATE AMINO TRANSFERASE 22 U/L (10-37); BLOOD UREA NITROGEN 21 MG/DL (7-18); BUN/CREATININE RATIO 6.4 (5.4-32.0); CHLORIDE 103 MMOL/L (99-107); CREATININE 3.28 MG/DL (0.60-1.10); GLUCOSE 99 MG/DL (70-104); PHOSPHORUS 2.2 MG/DL (2.3-4.5); POTASSIUM 4.4 MMOL/L (3.5-5.1); SODIUM 139 MMOL/L (135-145); TOTAL CARBON DIOXIDE 29.5 MMOL/L (24-32); TOTAL PROTEIN 5.1 G/DL (6.4-8.2); eGFR 19 ML/MIN
[2017-07-28] MEDS: metoprolol tartrate 25mg tablet PO SCH ×2 (08:00→19:25)
[2017-07-28] MEDS: furosemide 40mg tablet PO SCH ×3 (08:00→20:37)
[2017-07-28] MEDS: losartan 50mg tablet PO SCH (08:00)
[2017-07-28 08:17] LABS: HBSAG SCREEN Negative (Negative)
[2017-07-28] MEDS: docusate sod 100mg capsule PO SCH ×2 (08:21→19:22)
[2017-07-28] MEDS: folic acid 1mg tablet PO SCH (08:21)
[2017-07-28] MEDS: magnesium Cl slow-release 64mg tablet PO SCH ×2 (08:21→19:22)
[2017-07-28] MEDS: magnesium oxide 400mg tablet PO SCH ×2 (08:21→19:21)
[2017-07-28] MEDS: oxyCODONE IR 5mg (immed. release) tablet PO PRN ×2 (08:22→19:22)
[2017-07-28] MEDS: vitamin D (cholecalciferol) 1,000 unit tablet PO SCH (08:23)
[2017-07-28] MEDS: pantoprazole 40mg Tablet.DR PO SCH (08:23)
[2017-07-28] MEDS: apixaban 5mg tablet PO SCH ×2 (08:23→19:21)
[2017-07-28] MEDS: calcium carbonate 500mg chew tablet PO SCH (08:23)
[2017-07-28] MEDS: celeCOXIB 100mg capsule PO SCH (08:23)
[2017-07-28] MEDS: topiramate 25mg tablet PO SCH ×2 (08:26→19:22)
[2017-07-28 11:00] VITALS: BP 105/66
[2017-07-28 15:00] VITALS: BP 116/64
[2017-07-28 19:00] VITALS: BP 127/68
[2017-07-28] MEDS: atorvastatin 20mg tablet PO SCH (20:36)
[2017-07-28] MEDS: terazosin 5mg capsule PO SCH (20:36)
[2017-07-28] MEDS: amLODIPine 5mg tablet PO SCH (20:36)
[2017-07-28 23:00] VITALS: BP 123/63
[2017-07-29 03:00] VITALS: BP 111/64
[2017-07-29 06:00] VITALS: BP 107/57
[2017-07-29 06:14] LABS: BASOPHILS % (AUTO) 0 % (0-1); EOSINOPHILS # (AUTO) 0.1 X10'3 (0-0.9); EOSINOPHILS % (AUTO) 1.9 % (0-6); HEMATOCRIT 30.5 % (42.0-52.0); HEMOGLOBIN 10.2 g/dl (14.0-17.9); LYMPHOCYTES # (AUTO) 0.4 X10'3 (1.1-4.8); LYMPHOCYTES % (AUTO) 6.3 % (21-51); MEAN CORPUSCULAR HEMOGLOBIN 32.8 PG (27.0-31.0); MEAN CORPUSCULAR HGB CONC 33.6 % (33.0-36.5); MEAN CORPUSCULAR VOLUME 97.6 FL (78-98); MEAN PLATELET VOLUME 7.6 FL (7.4-10.4); MONOCYTES # (AUTO) 0.3 X10'3 (0-0.9); MONOCYTES % (AUTO) 5.7 % (2-12); NEUTROPHILS # (AUTO) 5.2 X10'3 (1.8-7.7); NEUTROPHILS % (AUTO) 86.1 % (42-75); PLATELET COUNT 133 X10'3 (140-440); RED BLOOD COUNT 3.13 X10'6 (4.70-6.10); RED CELL DISTRIBUTION WIDTH 16.7 % (11.5-14.5); WHITE BLOOD COUNT 6.1 X10'3 (4.5-11.0)
[2017-07-29 06:41] LABS: ALANINE AMINOTRANSFERASE 19 U/L (12-78); ALBUMIN 2.1 G/DL (3.4-5.0); ALBUMIN/GLOBULIN RATIO 0.7 (1.1-1.5); ALKALINE PHOSPHATASE 157 IU/L (46-116); ANION GAP 8 (8-16); ASPARTATE AMINO TRANSFERASE 22 U/L (10-37); BILIRUBIN,TOTAL 0.9 MG/DL (0.1-1.0); BLOOD UREA NITROGEN 33 MG/DL (7-18); BUN/CREATININE RATIO 7.4 (5.4-32.0); CALCIUM 8.2 MG/DL (8.5-10.1); CHLORIDE 103 MMOL/L (99-107); CREATININE 4.43 MG/DL (0.60-1.10); GLUCOSE 131 MG/DL (70-104); PHOSPHORUS 2.3 MG/DL (2.3-4.5); POTASSIUM 4.8 MMOL/L (3.5-5.1); SODIUM 139 MMOL/L (135-145); TOTAL CARBON DIOXIDE 27.8 MMOL/L (24-32); TOTAL PROTEIN 5.3 G/DL (6.4-8.2); eGFR 13 ML/MIN
[2017-07-29] MEDS ORDERED: epoetin 20,000 units/ml inj IV ONE (08:00)
[2017-07-29] MEDS: losartan 50mg tablet PO SCH (08:00)
[2017-07-29] MEDS ORDERED: heparin 1,000 units/ml 10ml inj IV ONE (08:00)
[2017-07-29] MEDS ORDERED: LIDOcaine 1% (10mg/ml) 2ml vial SQ ONE (08:00)
[2017-07-29] MEDS: furosemide 40mg tablet PO SCH ×3 (08:00→21:25)
[2017-07-29] MEDS ORDERED: normal saline 1000ml 250 ML IV PRN (08:00)
[2017-07-29] MEDS: metoprolol tartrate 25mg tablet PO SCH ×2 (08:00→21:25)
[2017-07-29 08:47] LABS: MAGNESIUM 1.2 MG/DL (1.5-2.4)
[2017-07-29] MEDS: docusate sod 100mg capsule PO SCH ×2 (09:42→21:24)
[2017-07-29] MEDS: vitamin D (cholecalciferol) 1,000 unit tablet PO SCH (09:43)
[2017-07-29] MEDS: apixaban 5mg tablet PO SCH ×2 (09:43→21:25)
[2017-07-29] MEDS: pantoprazole 40mg Tablet.DR PO SCH (09:43)
[2017-07-29] MEDS: magnesium Cl slow-release 64mg tablet PO SCH ×2 (09:45→21:23)
[2017-07-29] MEDS: folic acid 1mg tablet PO SCH (09:45)
[2017-07-29] MEDS: magnesium oxide 400mg tablet PO SCH ×2 (09:45→21:24)
[2017-07-29] MEDS: calcium carbonate 500mg chew tablet PO SCH (09:45)
[2017-07-29] MEDS: oxyCODONE IR 5mg (immed. release) tablet PO PRN ×2 (09:45→18:54)
[2017-07-29] MEDS: celeCOXIB 100mg capsule PO SCH (09:45)
[2017-07-29] MEDS: topiramate 25mg tablet PO SCH ×2 (09:45→21:26)
[2017-07-29 11:00] VITALS: BP 92/48
[2017-07-29 15:00] VITALS: BP 138/58
[2017-07-29 19:00] VITALS: BP 121/52
[2017-07-29] MEDS: terazosin 5mg capsule PO SCH (21:23)
[2017-07-29] MEDS: atorvastatin 20mg tablet PO SCH (21:24)
[2017-07-29] MEDS: amLODIPine 5mg tablet PO SCH (21:24)
[2017-07-29 23:00] VITALS: BP 108/49
[2017-07-30 06:00] VITALS: BP 103/62
[2017-07-30] MEDS: losartan 50mg tablet PO SCH (08:00)
[2017-07-30] MEDS: furosemide 40mg tablet PO SCH ×3 (08:00→21:37)
[2017-07-30] MEDS: metoprolol tartrate 25mg tablet PO SCH ×2 (08:00→19:37)
[2017-07-30] MEDS: docusate sod 100mg capsule PO SCH ×2 (08:17→19:36)
[2017-07-30] MEDS: magnesium Cl slow-release 64mg tablet PO SCH ×2 (08:17→19:37)
[2017-07-30] MEDS: magnesium oxide 400mg tablet PO SCH ×2 (08:17→19:37)
[2017-07-30] MEDS: topiramate 25mg tablet PO SCH ×2 (08:17→21:33)
[2017-07-30] MEDS: pantoprazole 40mg Tablet.DR PO SCH (08:18)
[2017-07-30] MEDS: folic acid 1mg tablet PO SCH (08:18)
[2017-07-30] MEDS: celeCOXIB 100mg capsule PO SCH (08:18)
[2017-07-30] MEDS: vitamin D (cholecalciferol) 1,000 unit tablet PO SCH (08:18)
[2017-07-30] MEDS: calcium carbonate 500mg chew tablet PO SCH (08:18)
[2017-07-30] MEDS: oxyCODONE IR 5mg (immed. release) tablet PO PRN ×3 (08:22→21:38)
[2017-07-30] MEDS: apixaban 5mg tablet PO SCH ×2 (08:23→19:37)
[2017-07-30 08:30] LABS: BASOPHILS % (AUTO) 0.1 % (0-1); EOSINOPHILS # (AUTO) 0.1 X10'3 (0-0.9); EOSINOPHILS % (AUTO) 1.6 % (0-6); HEMATOCRIT 31.3 % (42.0-52.0); HEMOGLOBIN 10.5 g/dl (14.0-17.9); LYMPHOCYTES # (AUTO) 0.3 X10'3 (1.1-4.8); LYMPHOCYTES % (AUTO) 5.2 % (21-51); MEAN CORPUSCULAR HGB CONC 33.5 % (33.0-36.5); MEAN CORPUSCULAR VOLUME 98.4 FL (78-98); MEAN PLATELET VOLUME 7.3 FL (7.4-10.4); MONOCYTES # (AUTO) 0.4 X10'3 (0-0.9); MONOCYTES % (AUTO) 6.9 % (2-12); NEUTROPHILS # (AUTO) 5.2 X10'3 (1.8-7.7); NEUTROPHILS % (AUTO) 86.2 % (42-75); PLATELET COUNT 125 X10'3 (140-440); RED BLOOD COUNT 3.18 X10'6 (4.70-6.10); RED CELL DISTRIBUTION WIDTH 16.8 % (11.5-14.5)
[2017-07-30 11:00] VITALS: BP 103/49
[2017-07-30 15:00] VITALS: BP 117/72
[2017-07-30 19:00] VITALS: BP 122/73
[2017-07-30] MEDS: terazosin 5mg capsule PO SCH (21:33)
[2017-07-30] MEDS: amLODIPine 5mg tablet PO SCH (21:33)
[2017-07-30] MEDS: atorvastatin 20mg tablet PO SCH (21:37)
[2017-07-30 23:00] VITALS: BP 118/68
[2017-07-31] VITALS (7 sets, daily range): BP systolic 91–124; BP diastolic 39–63
[2017-07-31] MEDS: furosemide 40mg tablet PO SCH (08:00)
[2017-07-31] MEDS: losartan 50mg tablet PO SCH (08:00)
[2017-07-31] MEDS: metoprolol tartrate 25mg tablet PO SCH (08:00)
[2017-07-31 08:33] LABS: BASOPHILS % (AUTO) 0.1 % (0-1); EOSINOPHILS # (AUTO) 0.1 X10'3 (0-0.9); EOSINOPHILS % (AUTO) 1.4 % (0-6); HEMATOCRIT 29.4 % (42.0-52.0); HEMOGLOBIN 9.8 g/dl (14.0-17.9); LYMPHOCYTES # (AUTO) 0.3 X10'3 (1.1-4.8); LYMPHOCYTES % (AUTO) 6.1 % (21-51); MEAN CORPUSCULAR HEMOGLOBIN 32.6 PG (27.0-31.0); MEAN CORPUSCULAR HGB CONC 33.4 % (33.0-36.5); MEAN CORPUSCULAR VOLUME 97.8 FL (78-98); MEAN PLATELET VOLUME 7.8 FL (7.4-10.4); MONOCYTES # (AUTO) 0.4 X10'3 (0-0.9); MONOCYTES % (AUTO) 7.3 % (2-12); NEUTROPHILS # (AUTO) 4.1 X10'3 (1.8-7.7); NEUTROPHILS % (AUTO) 85.1 % (42-75); PLATELET COUNT 120 X10'3 (140-440); RED BLOOD COUNT 3.01 X10'6 (4.70-6.10); RED CELL DISTRIBUTION WIDTH 16.3 % (11.5-14.5); WHITE BLOOD COUNT 4.8 X10'3 (4.5-11.0)
[2017-07-31 08:49] LABS: ALANINE AMINOTRANSFERASE 21 U/L (12-78); ALBUMIN 2.1 G/DL (3.4-5.0); ALBUMIN/GLOBULIN RATIO 0.6 (1.1-1.5); ALKALINE PHOSPHATASE 165 IU/L (46-116); ANION GAP 8 (8-16); ASPARTATE AMINO TRANSFERASE 26 U/L (10-37); BILIRUBIN,TOTAL 1.1 MG/DL (0.1-1.0); BLOOD UREA NITROGEN 39 MG/DL (7-18); BUN/CREATININE RATIO 8.8 (5.4-32.0); CALCIUM 8.4 MG/DL (8.5-10.1); CHLORIDE 99 MMOL/L (99-107); CREATININE 4.41 MG/DL (0.60-1.10); GLUCOSE 100 MG/DL (70-104); PHOSPHORUS 1.7 MG/DL (2.3-4.5); SODIUM 135 MMOL/L (135-145); TOTAL CARBON DIOXIDE 28.1 MMOL/L (24-32); TOTAL PROTEIN 5.5 G/DL (6.4-8.2); eGFR 13 ML/MIN
[2017-07-31] MEDS: docusate sod 100mg capsule PO SCH ×2 (09:11→20:00)
[2017-07-31] MEDS: celeCOXIB 100mg capsule PO SCH (09:11)
[2017-07-31] MEDS: folic acid 1mg tablet PO SCH (09:11)
[2017-07-31] MEDS: apixaban 5mg tablet PO SCH ×2 (09:11→20:47)
[2017-07-31] MEDS: pantoprazole 40mg Tablet.DR PO SCH (09:12)
[2017-07-31] MEDS: magnesium oxide 400mg tablet PO SCH ×2 (09:12→20:47)
[2017-07-31] MEDS: calcium carbonate 500mg chew tablet PO SCH (09:12)
[2017-07-31] MEDS: magnesium Cl slow-release 64mg tablet PO SCH ×2 (09:12→20:48)
[2017-07-31] MEDS: topiramate 25mg tablet PO SCH ×2 (09:12→20:48)
[2017-07-31] MEDS: vitamin D (cholecalciferol) 1,000 unit tablet PO SCH (09:13)
[2017-07-31] MEDS: terazosin 5mg capsule PO SCH (20:47)
[2017-07-31] MEDS: amLODIPine 5mg tablet PO SCH (20:47)
[2017-07-31] MEDS: atorvastatin 20mg tablet PO SCH (20:47)
[2017-07-31] MEDS: oxyCODONE IR 5mg (immed. release) tablet PO PRN (20:52)
[2017-08-01 03:00] VITALS: BP 105/64
[2017-08-01 06:00] VITALS: BP 121/61
[2017-08-01] MEDS ORDERED: heparin 1,000 units/ml 10ml inj IV ONE (08:00)
[2017-08-01] MEDS ORDERED: LIDOcaine 1% (10mg/ml) 2ml vial SQ ONE (08:00)
[2017-08-01] MEDS ORDERED: normal saline 1000ml 250 ML IV PRN (08:00)
[2017-08-01] MEDS ORDERED: heparin 1,000unit/ml 10ml vial 10 ML IV ONE (08:00)
[2017-08-01] MEDS: docusate sod 100mg capsule PO SCH ×2 (09:00→22:16)
[2017-08-01] MEDS: celeCOXIB 100mg capsule PO SCH (09:00)
[2017-08-01] MEDS: folic acid 1mg tablet PO SCH (09:00)
[2017-08-01] MEDS: apixaban 5mg tablet PO SCH ×2 (09:00→22:16)
[2017-08-01] MEDS: magnesium oxide 400mg tablet PO SCH ×2 (09:01→22:16)
[2017-08-01] MEDS: pantoprazole 40mg Tablet.DR PO SCH (09:01)
[2017-08-01] MEDS: calcium carbonate 500mg chew tablet PO SCH (09:01)
[2017-08-01] MEDS: magnesium Cl slow-release 64mg tablet PO SCH ×2 (09:01→22:17)
[2017-08-01] MEDS: vitamin D (cholecalciferol) 1,000 unit tablet PO SCH (09:02)
[2017-08-01] MEDS: oxyCODONE IR 5mg (immed. release) tablet PO PRN ×3 (09:05→23:53)
[2017-08-01] MEDS: topiramate 25mg tablet PO SCH ×2 (10:07→22:17)
[2017-08-01 11:00] VITALS: BP 110/63
[2017-08-01 15:00] VITALS: BP 107/65
[2017-08-01 19:00] VITALS: BP 116/59
[2017-08-01] MEDS: atorvastatin 20mg tablet PO SCH (22:16)
[2017-08-01 23:00] VITALS: BP 103/63
[2017-08-01] MEDS: terazosin 5mg capsule PO SCH (23:52)
[2017-08-01] MEDS: amLODIPine 5mg tablet PO SCH (23:52)
[2017-08-02 03:00] VITALS: BP 101/59
[2017-08-02 06:00] VITALS: BP 106/50
[2017-08-02] MEDS: apixaban 5mg tablet PO SCH ×2 (08:00→21:55)
[2017-08-02] MEDS: calcium carbonate 500mg chew tablet PO SCH (08:00)
[2017-08-02] MEDS: vitamin D (cholecalciferol) 1,000 unit tablet PO SCH (08:00)
[2017-08-02] MEDS: topiramate 25mg tablet PO SCH ×2 (08:00→21:57)
[2017-08-02] MEDS: magnesium oxide 400mg tablet PO SCH ×2 (08:00→21:57)
[2017-08-02] MEDS: celeCOXIB 100mg capsule PO SCH (08:00)
[2017-08-02] MEDS: folic acid 1mg tablet PO SCH (08:00)
[2017-08-02] MEDS: magnesium Cl slow-release 64mg tablet PO SCH ×2 (08:00→21:55)
[2017-08-02] MEDS: docusate sod 100mg capsule PO SCH ×2 (08:00→20:00)
[2017-08-02] MEDS: pantoprazole 40mg Tablet.DR PO SCH (08:00)
[2017-08-02 11:00] VITALS: BP 103/52
[2017-08-02] MEDS: oxyCODONE IR 5mg (immed. release) tablet PO PRN ×2 (12:33→21:57)
[2017-08-02 15:00] VITALS: BP 112/53
[2017-08-02 19:00] VITALS: BP 116/67
[2017-08-02] MEDS: amLODIPine 5mg tablet PO SCH (21:55)
[2017-08-02] MEDS: atorvastatin 20mg tablet PO SCH (21:56)
[2017-08-02] MEDS: terazosin 5mg capsule PO SCH (21:56)
[2017-08-02 23:00] VITALS: BP 101/62
[2017-08-03 05:16] LABS: HEMATOCRIT 26.8 % (42.0-52.0); HEMOGLOBIN 9.1 g/dl (14.0-17.9); MEAN CORPUSCULAR HEMOGLOBIN 32.5 PG (27.0-31.0); MEAN CORPUSCULAR HGB CONC 33.7 % (33.0-36.5); MEAN CORPUSCULAR VOLUME 96.2 FL (78-98); MEAN PLATELET VOLUME 7.8 FL (7.4-10.4); PLATELET COUNT 125 X10'3 (140-440); RED BLOOD COUNT 2.79 X10'6 (4.70-6.10); RED CELL DISTRIBUTION WIDTH 16.2 % (11.5-14.5); WHITE BLOOD COUNT 3.8 X10'3 (4.5-11.0)
[2017-08-03 05:30] LABS: PHOSPHORUS 1.6 MG/DL (2.3-4.5)
[2017-08-03 06:00] VITALS: BP 114/66
[2017-08-03] MEDS: topiramate 25mg tablet PO SCH ×2 (07:49→21:14)
[2017-08-03] MEDS: pantoprazole 40mg Tablet.DR PO SCH (07:50)
[2017-08-03] MEDS: folic acid 1mg tablet PO SCH (07:58)
[2017-08-03] MEDS: docusate sod 100mg capsule PO SCH ×2 (07:58→21:13)
[2017-08-03] MEDS: apixaban 5mg tablet PO SCH ×2 (07:58→21:14)
[2017-08-03] MEDS: magnesium oxide 400mg tablet PO SCH ×2 (07:59→21:15)
[2017-08-03] MEDS: vitamin D (cholecalciferol) 1,000 unit tablet PO SCH (07:59)
[2017-08-03] MEDS ORDERED: normal saline 1000ml 250 ML IV PRN (08:00)
[2017-08-03] MEDS: celeCOXIB 100mg capsule PO SCH (08:00)
[2017-08-03] MEDS: metoprolol tartrate 25mg tablet PO SCH ×2 (08:00→21:13)
[2017-08-03] MEDS ORDERED: heparin 1,000 units/ml 10ml inj IV ONE (08:00)
[2017-08-03] MEDS ORDERED: epoetin 20,000 units/ml inj IV ONE (08:00)
[2017-08-03] MEDS ORDERED: LIDOcaine 1% (10mg/ml) 2ml vial SQ ONE (08:00)
[2017-08-03] MEDS: calcium carbonate 500mg chew tablet PO SCH (08:02)
[2017-08-03] MEDS: oxyCODONE IR 5mg (immed. release) tablet PO PRN ×2 (08:17→21:26)
[2017-08-03] MEDS: magnesium Cl slow-release 64mg tablet PO SCH ×2 (08:28→21:16)
[2017-08-03 09:01] LABS: ALANINE AMINOTRANSFERASE 22 U/L (12-78); ALBUMIN/GLOBULIN RATIO 0.6 (1.1-1.5); ALKALINE PHOSPHATASE 164 IU/L (46-116); ANION GAP 8 (8-16); ASPARTATE AMINO TRANSFERASE 31 U/L (10-37); BILIRUBIN,TOTAL 0.9 MG/DL (0.1-1.0); BLOOD UREA NITROGEN 46 MG/DL (7-18); BUN/CREATININE RATIO 10.6 (5.4-32.0); CALCIUM 8.3 MG/DL (8.5-10.1); CHLORIDE 105 MMOL/L (99-107); CREATININE 4.36 MG/DL (0.60-1.10); GLUCOSE 86 MG/DL (70-104); POTASSIUM 5.1 MMOL/L (3.5-5.1); SODIUM 141 MMOL/L (135-145); TOTAL CARBON DIOXIDE 27.6 MMOL/L (24-32); TOTAL PROTEIN 5.3 G/DL (6.4-8.2); eGFR 14 ML/MIN
[2017-08-03 11:00] VITALS: BP 110/67
[2017-08-03 15:00] VITALS: BP 135/74
[2017-08-03 19:00] VITALS: BP 103/52
[2017-08-03] MEDS: amLODIPine 5mg tablet PO SCH (21:14)
[2017-08-03] MEDS: atorvastatin 20mg tablet PO SCH (21:15)
[2017-08-03] MEDS: terazosin 5mg capsule PO SCH (21:15)
[2017-08-03 22:00] VITALS: BP 111/58
[2017-08-04 02:00] VITALS: BP 118/61
[2017-08-04 07:09] VITALS: BP 120/61
[2017-08-04] MEDS: apixaban 5mg tablet PO SCH (07:13)
[2017-08-04] MEDS: docusate sod 100mg capsule PO SCH (07:13)
[2017-08-04] MEDS: pantoprazole 40mg Tablet.DR PO SCH (07:14)
[2017-08-04] MEDS: magnesium oxide 400mg tablet PO SCH (07:14)
[2017-08-04] MEDS: celeCOXIB 100mg capsule PO SCH (07:15)
[2017-08-04] MEDS: vitamin D (cholecalciferol) 1,000 unit tablet PO SCH (07:15)
[2017-08-04] MEDS: topiramate 25mg tablet PO SCH (07:16)
[2017-08-04] MEDS: folic acid 1mg tablet PO SCH (07:18)
[2017-08-04] MEDS: oxyCODONE IR 5mg (immed. release) tablet PO PRN (07:18)
[2017-08-04] MEDS: calcium carbonate 500mg chew tablet PO SCH (07:18)
[2017-08-04] MEDS: magnesium Cl slow-release 64mg tablet PO SCH (07:19)
[2017-08-04] MEDS: metoprolol tartrate 25mg tablet PO SCH (07:19)
[2017-08-04 11:00] VITALS: BP 100/56
== END 2017-08-04 13:20 | DRG 682 ==
LOC: ER 14:41 → ED HOLD 17:53 → CMPBEDREQ 22:51 → PCU 3S 23:29
PROVIDERS: ATTEND Internal Medicine Critical Care Medicine
PROC: 5A1D70Z Performance of Urinary Filtration, Intermittent, Less than 6 Hours Per Day (ICD-10-PCS; principal; 2017-07-26)
PROC: 5A1D70Z Performance of Urinary Filtration, Intermittent, Less than 6 Hours Per Day (ICD-10-PCS; 2017-07-27)
PROC: 5A1D70Z Performance of Urinary Filtration, Intermittent, Less than 6 Hours Per Day (ICD-10-PCS; 2017-07-29)
PROC: 5A1D70Z Performance of Urinary Filtration, Intermittent, Less than 6 Hours Per Day (ICD-10-PCS; 2017-08-01)
PROC: 5A1D70Z Performance of Urinary Filtration, Intermittent, Less than 6 Hours Per Day (ICD-10-PCS; 2017-08-03)
DX: N17.9 Acute kidney failure, unspecified (principal); E43 Unspecified severe protein-calorie malnutrition; I13.2 Hypertensive heart and chronic kidney disease with heart failure and with stage 5 chronic kidney disease, or end stage renal disease; I50.21 Acute systolic (congestive) heart failure; N18.6 End stage renal disease; J44.9 Chronic obstructive pulmonary disease, unspecified; I73.9 Peripheral vascular disease, unspecified; E87.70 Fluid overload, unspecified; G62.9 Polyneuropathy, unspecified; I25.10 Atherosclerotic heart disease of native coronary artery without angina pectoris; I25.2 Old myocardial infarction; Z72.0 Tobacco use; Z91.19 Patient's noncompliance with other medical treatment and regimen; Z88.0 Allergy status to penicillin; Z88.8 Allergy status to other drugs, medicaments and biological substances; Z79.01 Long term (current) use of anticoagulants; Z79.899 Other long term (current) drug therapy; Z99.2 Dependence on renal dialysis; Z86.711 Personal history of pulmonary embolism; Z87.01 Personal history of pneumonia (recurrent); Z80.3 Family history of malignant neoplasm of breast; Z82.49 Family history of ischemic heart disease and other diseases of the circulatory system; Z83.3 Family history of diabetes mellitus; Z68.24 Body mass index [BMI] 24.0-24.9, adult
CPT/HCPCS: 36415; 71045; 80053; 81001; 82948; 83735; 83880; 84100; 84484; 85025; 85027; 85610; 85730; 87070; 87340; 90935; 93005; 94640; 94760; 97110; 97116; 97162; 97530; 99285; A6212; A6402; A6449; G0257; J0885; J1644; J3490; J7030

== ENCOUNTER 2017-12-29 19:32 | Inpatient (IN) | payer MEDICARE, OTHER ==
[~2017-12-29] VITALS: Ht 170.2 cm; Wt 62.3 kg
[~2017-12-29 19:32] MED LIST changes: -ALB0.5UD IH
[2017-12-29 22:30] LABS: BASOPHILS % (AUTO) 0.1 % (0-1); EOSINOPHILS # (AUTO) 0.2 X10'3 (0-0.9); EOSINOPHILS % (AUTO) 1.8 % (0-6); HEMATOCRIT 40.6 % (42.0-52.0); HEMOGLOBIN 13.4 g/dl (14.0-17.9); LYMPHOCYTES # (AUTO) 0.4 X10'3 (1.1-4.8); LYMPHOCYTES % (AUTO) 4.6 % (21-51); MEAN CORPUSCULAR HEMOGLOBIN 31.3 PG (27.0-31.0); MEAN CORPUSCULAR VOLUME 94.8 FL (78-98); MEAN PLATELET VOLUME 8.4 FL (7.4-10.4); MONOCYTES # (AUTO) 0.3 X10'3 (0-0.9); MONOCYTES % (AUTO) 2.9 % (2-12); NEUTROPHILS # (AUTO) 8.6 X10'3 (1.8-7.7); NEUTROPHILS % (AUTO) 90.6 % (42-75); PLATELET COUNT 96 X10'3 (140-440); RED BLOOD COUNT 4.29 X10'6 (4.70-6.10); RED CELL DISTRIBUTION WIDTH 17.3 % (11.5-14.5); WHITE BLOOD COUNT 9.5 X10'3 (4.5-11.0)
[2017-12-29 22:36] LABS: INR 1.5 INR; PARTIAL THROMBOPLASTIN TIME 34 SECONDS (22-32)
[2017-12-29 22:41] LABS: ALANINE AMINOTRANSFERASE 27 U/L (12-78); ALBUMIN 2.6 G/DL (3.4-5.0); ALBUMIN/GLOBULIN RATIO 0.6 (1.1-1.5); ALKALINE PHOSPHATASE 260 IU/L (46-116); ANION GAP 12 (8-16); ASPARTATE AMINO TRANSFERASE 36 U/L (10-37); BILIRUBIN,TOTAL 2.1 MG/DL (0.1-1.0); BLOOD UREA NITROGEN 49 MG/DL (7-18); BUN/CREATININE RATIO 12.2 (5.4-32.0); CALCIUM 8.7 MG/DL (8.5-10.1); CHLORIDE 94 MMOL/L (99-107); CREATININE 4.01 MG/DL (0.60-1.10); GLUCOSE 83 MG/DL (70-104); POTASSIUM 4.6 MMOL/L (3.5-5.1); SODIUM 130 MMOL/L (135-145); TOTAL CARBON DIOXIDE 23.7 MMOL/L (24-32); TOTAL PROTEIN 6.8 G/DL (6.4-8.2); eGFR 15 ML/MIN
[2017-12-29 22:48] LABS: ETHANOL < 0.010 GM/DL (0.0-0.010); MAGNESIUM 1.3 MG/DL (1.5-2.4)
[2017-12-29 22:59] LABS: CLARITY,URINE CLEAR (Clear); COLOR,URINE YELLOW (Yellow); GLUCOSE, URINE NEGATIVE (Neg); KETONES,URINE NEGATIVE (Neg); LEUKOCYTE ESTERASE ,URINE NEGATIVE (Neg); NITRITES, URINE NEGATIVE (Neg); OCCULT BLOOD,URINE NEGATIVE (Neg); PROTEIN,URINE 30 mg/dl (Neg)
[2017-12-29 23:03] LABS: URINE AMPHETAMINE SCREEN NEGATIVE (Neg); URINE BARBITUATE SCREEN NEGATIVE (Neg); URINE BENZODIAZEPINES SCREEN NEGATIVE (Neg); URINE CANNABINOID SCREEN POSITIVE (Neg); URINE COCAINE SCREEN NEGATIVE (Neg); URINE METHADONE SCREEN NEGATIVE (Neg); URINE OPIATE SCREEN POSITIVE (Neg); URINE PHENCYCLIDINE SCREEN NEGATIVE (Neg)
[2017-12-29 23:32] LABS: UA COLLECTION TYPE STRAIGHT CATH
[2017-12-29 23:34] LABS: AMORPHOUS URATES 2+; BACTERIA,URINE 1+ /HPF (Neg); RBC,URINE NONE SEEN /HPF (0-2); SQUAMOUS EPITHELIAL CELL,UR NONE SEEN /LPF (FEW); WBC,URINE NONE SEEN /HPF (0-4)
[2017-12-30] MEDS ORDERED: fentaNYL/PF 50MCG/1 ML 2ML syringe IV ONE (00:20)
[2017-12-30] MEDS ORDERED: ALB0.5UD IH (01:24)
[2017-12-30] MEDS ORDERED: bisacodyl 10mg suppository rectal RC PRN (01:30)
[2017-12-30] MEDS ORDERED: morphine 4 MG/ML inj SYRINge IV PRN (01:30)
[2017-12-30] MEDS ORDERED: ondansetron/PF 4mg/2ml inj IV PRN (01:30)
[2017-12-30] MEDS ORDERED: ipratropium/albuterol 3ml nebule NEB PRN (01:30)
[2017-12-30 03:30] VITALS: BP 158/85
[2017-12-30 04:16] LABS: ABG HCO3 16.3 mmol/L (22.0-26.0); ABG OXYGEN SATURATION 93.1 % (95-98); ABG PCO2 (T) 29.2 mmHg (35.0-48.0); ABG PH (T) 7.362 (7.350-7.450); ABG PO2 (T) 67.3 mmHg (83-108); FCOHb 2.4 % (0.5-1.5); FLOW 3 L/min; FO2Hb 90.9 % (94-100); PATIENT TEMPERATURE 36.6; TOTAL HEMOGLOBIN 12.2 G/dl (14.0-18.0)
[2017-12-30 06:53] VITALS: BP 103/54
[2017-12-30] MEDS ORDERED: LIDOcaine 1% (10mg/ml) 2ml vial SQ ONE (07:40)
[2017-12-30] MEDS ORDERED: epoetin 20,000 units/ml inj IV ONE (07:40)
[2017-12-30] MEDS ORDERED: normal saline 1000ml 250 ML IV PRN (07:40)
[2017-12-30] MEDS ORDERED: heparin 1,000unit/ml 10ml vial 10 ML IV ONE (07:40)
[2017-12-30] MEDS ORDERED: heparin 1,000 units/ml 10ml inj HE ONE ×2 (07:45)
[2017-12-30] MEDS: magnesium oxide 400mg tablet PO SCH ×2 (07:53→21:07)
[2017-12-30] MEDS: ipratropium/albuterol 3ml nebule NEB SCH ×3 (07:53→20:11)
[2017-12-30] MEDS: apixaban 5mg tablet PO SCH ×2 (07:54→21:07)
[2017-12-30] MEDS: metoprolol tartrate 25mg tablet PO SCH ×2 (07:54→20:00)
[2017-12-30] MEDS: calcium carbonate 500mg tablet PO SCH (07:54)
[2017-12-30] MEDS: losartan 50mg tablet PO SCH (07:54)
[2017-12-30] MEDS: vitamin D (cholecalciferol) 1,000 unit tablet PO SCH (07:54)
[2017-12-30] MEDS: celeCOXIB 100mg capsule PO SCH (07:54)
[2017-12-30] MEDS: metoprolol tartrate 12.5mg (1/2 tablet) PO SCH ×2 (07:54→20:00)
[2017-12-30] MEDS: docusate sod 100mg capsule PO SCH ×2 (07:54→21:08)
[2017-12-30] MEDS: folic acid 1mg tablet PO SCH (07:54)
[2017-12-30] MEDS: topiramate 25mg tablet PO SCH ×2 (07:54→21:08)
[2017-12-30] MEDS: furosemide 40mg tablet PO SCH ×3 (07:54→21:00)
[2017-12-30] MEDS: pantoprazole 40mg Tablet.DR PO SCH (07:54)
[2017-12-30] MEDS: lactulose 20gm/30ml cup PO SCH (07:55)
[2017-12-30] MEDS: oxyCODONE IR 5mg (immed. release) tablet PO PRN ×2 (07:59→17:44)
[2017-12-30] MEDS: nicotine 21mg patch - 24 hr TD SCH (08:00)
[2017-12-30 11:00] VITALS: BP 83/46
[2017-12-30] MEDS ORDERED: albumin 25% 50mL bottle IV ONE (11:40)
[2017-12-30] MEDS ORDERED: albumin (human) 25% 100ml IV 100 ML IV PRN ×2 (14:10→15:05)
[2017-12-30] MEDS ORDERED: ALBUMIN 25% IV PRN (14:18)
[2017-12-30] MEDS: albumin 25% 50mL bottle 100 ML IV PRN ×2 (14:23→15:16)
[2017-12-30 16:54] VITALS: BP 95/50
[2017-12-30] MEDS: terazosin 5mg capsule PO SCH (21:00)
[2017-12-30] MEDS ORDERED: amLODIPine 5mg tablet PO SCH (21:00)
[2017-12-30] MEDS: atorvastatin 20mg tablet PO SCH (21:07)
[2017-12-30] MEDS: morphine 4 MG/ML inj SYRINge IV PRN (21:14)
[2017-12-31] VITALS: BP 94/56
[2017-12-31] MEDS: oxyCODONE IR 5mg (immed. release) tablet PO PRN ×2 (05:13→16:12)
[2017-12-31 05:37] LABS: BASOPHILS % (AUTO) 0 % (0-1); EOSINOPHILS # (AUTO) 0.2 X10'3 (0-0.9); EOSINOPHILS % (AUTO) 1.5 % (0-6); HEMATOCRIT 28.8 % (42.0-52.0); HEMOGLOBIN 9.4 g/dl (14.0-17.9); LYMPHOCYTES # (AUTO) 0.3 X10'3 (1.1-4.8); LYMPHOCYTES % (AUTO) 2.3 % (21-51); MEAN CORPUSCULAR HEMOGLOBIN 31.4 PG (27.0-31.0); MEAN CORPUSCULAR HGB CONC 32.7 % (33.0-36.5); MEAN PLATELET VOLUME 8.1 FL (7.4-10.4); MONOCYTES # (AUTO) 0.4 X10'3 (0-0.9); MONOCYTES % (AUTO) 3.1 % (2-12); NEUTROPHILS # (AUTO) 11.5 X10'3 (1.8-7.7); NEUTROPHILS % (AUTO) 93.1 % (42-75); PLATELET COUNT 59 X10'3 (140-440); RED CELL DISTRIBUTION WIDTH 17.3 % (11.5-14.5); WHITE BLOOD COUNT 12.4 X10'3 (4.5-11.0)
[2017-12-31 05:57] LABS: PARTIAL THROMBOPLASTIN TIME 46 SECONDS (22-32); PROTHROMBIN TIME 20.5 SECONDS (9.0-12.0)
[2017-12-31 06:30] LABS: ALANINE AMINOTRANSFERASE 25 U/L (12-78); ALBUMIN 2.5 G/DL (3.4-5.0); ALBUMIN/GLOBULIN RATIO 0.9 (1.1-1.5); ALKALINE PHOSPHATASE 152 IU/L (46-116); ANION GAP 14 (8-16); ASPARTATE AMINO TRANSFERASE 23 U/L (10-37); BILIRUBIN,TOTAL 1.8 MG/DL (0.1-1.0); BLOOD UREA NITROGEN 27 MG/DL (7-18); BUN/CREATININE RATIO 9.9 (5.4-32.0); CALCIUM 7.9 MG/DL (8.5-10.1); CHLORIDE 99 MMOL/L (99-107); CREATININE 2.72 MG/DL (0.60-1.10); GLUCOSE 71 MG/DL (70-104); MAGNESIUM 1.5 MG/DL (1.5-2.4); PHOSPHORUS 2.6 MG/DL (2.3-4.5); POTASSIUM 3.3 MMOL/L (3.5-5.1); SODIUM 136 MMOL/L (135-145); TOTAL PROTEIN 5.3 G/DL (6.4-8.2); eGFR 23 ML/MIN
[2017-12-31 07:19] VITALS: BP 111/64
[2017-12-31] MEDS: nicotine 21mg patch - 24 hr TD SCH ×2 (08:00→08:55)
[2017-12-31] MEDS: metoprolol tartrate 25mg tablet PO SCH (08:00)
[2017-12-31] MEDS: metoprolol tartrate 12.5mg (1/2 tablet) PO SCH ×2 (08:00→21:30)
[2017-12-31] MEDS: lactulose 20gm/30ml cup PO SCH ×2 (08:00→08:55)
[2017-12-31] MEDS: furosemide 40mg tablet PO SCH ×3 (08:00→21:00)
[2017-12-31] MEDS: losartan 50mg tablet PO SCH (08:00)
[2017-12-31] MEDS: ipratropium/albuterol 3ml nebule NEB SCH ×3 (08:49→20:26)
[2017-12-31] MEDS: folic acid 1mg tablet PO SCH (08:56)
[2017-12-31] MEDS: celeCOXIB 100mg capsule PO SCH (08:56)
[2017-12-31] MEDS: pantoprazole 40mg Tablet.DR PO SCH (08:56)
[2017-12-31] MEDS: docusate sod 100mg capsule PO SCH ×3 (08:56→20:44)
[2017-12-31] MEDS: vitamin D (cholecalciferol) 1,000 unit tablet PO SCH (08:56)
[2017-12-31] MEDS: apixaban 5mg tablet PO SCH ×2 (08:57→20:44)
[2017-12-31] MEDS: calcium carbonate 500mg tablet PO SCH (08:57)
[2017-12-31] MEDS: topiramate 25mg tablet PO SCH ×2 (08:57→20:43)
[2017-12-31] MEDS: magnesium oxide 400mg tablet PO SCH ×2 (08:57→20:44)
[2017-12-31 10:13] LABS: ANISOCYTOSIS 1+; PLATELET ESTIMATE DECREASED; POLYCHROMASIA FEW; TARGET CELLS FEW; TOTAL CELLS COUNTED 100
[2017-12-31 12:00] VITALS: BP 93/54
[2017-12-31 19:00] VITALS: BP 99/62
[2017-12-31] MEDS ORDERED: albumin (human) 25% 100 ML IV solution IV PRN (20:00)
[2017-12-31] MEDS: atorvastatin 20mg tablet PO SCH (20:44)
[2017-12-31] MEDS: terazosin 5mg capsule PO SCH (20:44)
[2017-12-31] MEDS: albumin 25% 50mL bottle IV PRN (21:07)
[2017-12-31] MEDS: morphine 4 MG/ML inj SYRINge IV PRN (21:23)
[2017-12-31] MEDS ORDERED: vancomycin/NS 1 GM ADD-VANTAGE 250 ML IV ONE (23:50)
[2018-01-01] VITALS: BP 101/92
[2018-01-01 05:15] LABS: BASOPHILS % (AUTO) 0 % (0-1); EOSINOPHILS % (AUTO) 0 % (0-6); HEMATOCRIT 28.5 % (42.0-52.0); HEMOGLOBIN 9.5 g/dl (14.0-17.9); LYMPHOCYTES # (AUTO) 0.4 X10'3 (1.1-4.8); LYMPHOCYTES % (AUTO) 2.6 % (21-51); MEAN CORPUSCULAR HEMOGLOBIN 31.4 PG (27.0-31.0); MEAN CORPUSCULAR HGB CONC 33.5 % (33.0-36.5); MEAN PLATELET VOLUME 8.4 FL (7.4-10.4); MONOCYTES # (AUTO) 0.4 X10'3 (0-0.9); MONOCYTES % (AUTO) 2.9 % (2-12); NEUTROPHILS # (AUTO) 13.2 X10'3 (1.8-7.7); NEUTROPHILS % (AUTO) 94.5 % (42-75); PLATELET COUNT 61 X10'3 (140-440); RED BLOOD COUNT 3.04 X10'6 (4.70-6.10); RED CELL DISTRIBUTION WIDTH 16.3 % (11.5-14.5); WHITE BLOOD COUNT 14.1 X10'3 (4.5-11.0)
[2018-01-01 06:08] LABS: INR 1.8 INR; PARTIAL THROMBOPLASTIN TIME 49 SECONDS (22-32); PROTHROMBIN TIME 18.1 SECONDS (9.0-12.0)
[2018-01-01 06:50] LABS: ALANINE AMINOTRANSFERASE 17 U/L (12-78); ALBUMIN 2.7 G/DL (3.4-5.0); ALKALINE PHOSPHATASE 172 IU/L (46-116); ANION GAP 11 (8-16); ASPARTATE AMINO TRANSFERASE 24 U/L (10-37); BILIRUBIN,TOTAL 1.8 MG/DL (0.1-1.0); BLOOD UREA NITROGEN 37 MG/DL (7-18); BUN/CREATININE RATIO 11.6 (5.4-32.0); CALCIUM 7.9 MG/DL (8.5-10.1); CHLORIDE 97 MMOL/L (99-107); CREATININE 3.19 MG/DL (0.60-1.10); GLUCOSE 144 MG/DL (70-104); MAGNESIUM 1.5 MG/DL (1.5-2.4); PHOSPHORUS 2.6 MG/DL (2.3-4.5); POTASSIUM 3.5 MMOL/L (3.5-5.1); SODIUM 133 MMOL/L (135-145); TOTAL CARBON DIOXIDE 24.6 MMOL/L (24-32); TOTAL PROTEIN 5.4 G/DL (6.4-8.2); eGFR 20 ML/MIN
[2018-01-01 07:30] VITALS: BP 108/69
[2018-01-01] MEDS: lactulose 20gm/30ml cup PO SCH (08:06)
[2018-01-01] MEDS: nicotine 21mg patch - 24 hr TD SCH (08:07)
[2018-01-01] MEDS: celeCOXIB 100mg capsule PO SCH (08:10)
[2018-01-01] MEDS: vitamin D (cholecalciferol) 1,000 unit tablet PO SCH (08:10)
[2018-01-01] MEDS: apixaban 5mg tablet PO SCH ×2 (08:10→20:40)
[2018-01-01] MEDS: docusate sod 100mg capsule PO SCH ×2 (08:11→20:00)
[2018-01-01] MEDS: furosemide 40mg tablet PO SCH ×3 (08:11→21:00)
[2018-01-01] MEDS: folic acid 1mg tablet PO SCH (08:11)
[2018-01-01] MEDS: magnesium oxide 400mg tablet PO SCH ×2 (08:11→20:41)
[2018-01-01] MEDS: pantoprazole 40mg Tablet.DR PO SCH (08:12)
[2018-01-01] MEDS: calcium carbonate 500mg tablet PO SCH (08:12)
[2018-01-01] MEDS: losartan 50mg tablet PO SCH (08:12)
[2018-01-01] MEDS: metoprolol tartrate 12.5mg (1/2 tablet) PO SCH ×2 (08:12→20:00)
[2018-01-01] MEDS: topiramate 25mg tablet PO SCH ×2 (08:15→20:40)
[2018-01-01] MEDS: ipratropium/albuterol 3ml nebule NEB SCH ×3 (08:53→21:38)
[2018-01-01] MEDS: oxyCODONE IR 5mg (immed. release) tablet PO PRN ×2 (12:20→22:56)
[2018-01-01 12:51] VITALS: BP 81/55
[2018-01-01 19:00] VITALS: BP 82/48
[2018-01-01] MEDS: atorvastatin 20mg tablet PO SCH (20:41)
[2018-01-01] MEDS: terazosin 5mg capsule PO SCH (21:00)
[2018-01-01] MEDS: albumin 25% 50mL bottle IV PRN (21:22)
[2018-01-01 21:45] VITALS: BP 91/66
[2018-01-01] MEDS: vancomycin/NS 1 GM ADD-VANTAGE 250 ML IV SCH (23:41)
[2018-01-02] VITALS: BP 105/60
[2018-01-02] MEDS: morphine 4 MG/ML inj SYRINge IV PRN (00:55)
[2018-01-02] MEDS: oxyCODONE IR 5mg (immed. release) tablet PO PRN ×2 (05:03→21:30)
[2018-01-02 05:45] LABS: BASOPHILS % (AUTO) 0 % (0-1); EOSINOPHILS % (AUTO) 0.1 % (0-6); HEMATOCRIT 27.7 % (42.0-52.0); LYMPHOCYTES # (AUTO) 0.5 X10'3 (1.1-4.8); LYMPHOCYTES % (AUTO) 5.7 % (21-51); MEAN CORPUSCULAR HEMOGLOBIN 31.1 PG (27.0-31.0); MEAN CORPUSCULAR HGB CONC 32.6 % (33.0-36.5); MEAN CORPUSCULAR VOLUME 95.5 FL (78-98); MEAN PLATELET VOLUME 9.4 FL (7.4-10.4); MONOCYTES # (AUTO) 0.3 X10'3 (0-0.9); MONOCYTES % (AUTO) 3.6 % (2-12); NEUTROPHILS # (AUTO) 8.6 X10'3 (1.8-7.7); NEUTROPHILS % (AUTO) 90.6 % (42-75); WHITE BLOOD COUNT 9.4 X10'3 (4.5-11.0)
[2018-01-02 05:51] LABS: PLATELET COUNT 48 X10'3 (140-440)
[2018-01-02 05:55] LABS: INR 1.7 INR; PARTIAL THROMBOPLASTIN TIME 50 SECONDS (22-32); PROTHROMBIN TIME 16.9 SECONDS (9.0-12.0)
[2018-01-02 06:02] LABS: ALANINE AMINOTRANSFERASE 19 U/L (12-78); ALBUMIN 2.8 G/DL (3.4-5.0); ALKALINE PHOSPHATASE 178 IU/L (46-116); ANION GAP 11 (8-16); ASPARTATE AMINO TRANSFERASE 31 U/L (10-37); BLOOD UREA NITROGEN 47 MG/DL (7-18); BUN/CREATININE RATIO 13.5 (5.4-32.0); CHLORIDE 96 MMOL/L (99-107); CREATININE 3.49 MG/DL (0.60-1.10); GLUCOSE 99 MG/DL (70-104); MAGNESIUM 1.4 MG/DL (1.5-2.4); PHOSPHORUS 2.6 MG/DL (2.3-4.5); POTASSIUM 3.8 MMOL/L (3.5-5.1); SODIUM 132 MMOL/L (135-145); TOTAL PROTEIN 5.7 G/DL (6.4-8.2); VANCOMYCIN,RANDOM 22.4 UG/ML; eGFR 18 ML/MIN
[2018-01-02 06:08] LABS: LARGE PLATELETS FEW; PLATELET ESTIMATE DECREASED
[2018-01-02 07:49] VITALS: BP 126/89
[2018-01-02] MEDS: furosemide 40mg tablet PO SCH ×3 (08:00→21:00)
[2018-01-02] MEDS: losartan 50mg tablet PO SCH (08:00)
[2018-01-02] MEDS: metoprolol tartrate 12.5mg (1/2 tablet) PO SCH ×2 (08:00→20:00)
[2018-01-02] MEDS ORDERED: normal saline 1000ml 250 ML IV PRN (08:42)
[2018-01-02] MEDS ORDERED: epoetin 20,000 units/ml inj IV ONE (08:45)
[2018-01-02] MEDS ORDERED: LIDOcaine 1% (10mg/ml) 2ml vial SQ ONE (08:45)
[2018-01-02] MEDS ORDERED: albumin (human) 25% 100ml IV 100 ML IV PRN ×2 (08:50)
[2018-01-02] MEDS: pantoprazole 40mg Tablet.DR PO SCH (09:09)
[2018-01-02] MEDS: celeCOXIB 100mg capsule PO SCH (09:10)
[2018-01-02] MEDS: docusate sod 100mg capsule PO SCH ×2 (09:10→21:08)
[2018-01-02] MEDS: folic acid 1mg tablet PO SCH (09:11)
[2018-01-02] MEDS: calcium carbonate 500mg tablet PO SCH (09:11)
[2018-01-02] MEDS: magnesium oxide 400mg tablet PO SCH ×2 (09:11→21:08)
[2018-01-02] MEDS: apixaban 5mg tablet PO SCH ×2 (09:11→20:00)
[2018-01-02] MEDS: vitamin D (cholecalciferol) 1,000 unit tablet PO SCH (09:12)
[2018-01-02] MEDS: topiramate 25mg tablet PO SCH ×2 (09:12→21:31)
[2018-01-02] MEDS: nicotine 21mg patch - 24 hr TD SCH (09:14)
[2018-01-02] MEDS: ipratropium/albuterol 3ml nebule NEB SCH ×3 (09:31→20:15)
[2018-01-02 11:30] VITALS: BP 95/65
[2018-01-02 20:00] VITALS: BP 92/64
[2018-01-02] MEDS ORDERED: gelatin sponge, absorbable (Gelfoam 100) sponge TP ONE (20:40)
[2018-01-02] MEDS ORDERED: gelatin sponge, absorbable (Gelfoam-100 compressed) sponge TP ONE (20:50)
[2018-01-02] MEDS: terazosin 5mg capsule PO SCH (21:07)
[2018-01-02] MEDS: atorvastatin 20mg tablet PO SCH (21:08)
[2018-01-02 23:52] VITALS: BP 81/38
[2018-01-03] MEDS: vancomycin/NS 1 GM ADD-VANTAGE 250 ML IV SCH ×2 (00:26→23:58)
[2018-01-03] MEDS: oxyCODONE IR 5mg (immed. release) tablet PO PRN ×3 (03:29→17:34)
[2018-01-03 07:05] LABS: BASOPHILS % (AUTO) 0 % (0-1); EOSINOPHILS % (AUTO) 0 % (0-6); HEMATOCRIT 22.8 % (42.0-52.0); HEMOGLOBIN 7.6 g/dl (14.0-17.9); LYMPHOCYTES # (AUTO) 0.2 X10'3 (1.1-4.8); LYMPHOCYTES % (AUTO) 5.7 % (21-51); MEAN CORPUSCULAR HEMOGLOBIN 31.1 PG (27.0-31.0); MEAN CORPUSCULAR HGB CONC 33.2 % (33.0-36.5); MEAN CORPUSCULAR VOLUME 93.7 FL (78-98); MEAN PLATELET VOLUME 8.5 FL (7.4-10.4); MONOCYTES # (AUTO) 0.2 X10'3 (0-0.9); MONOCYTES % (AUTO) 4.5 % (2-12); NEUTROPHILS # (AUTO) 3.5 X10'3 (1.8-7.7); NEUTROPHILS % (AUTO) 89.8 % (42-75); RED BLOOD COUNT 2.43 X10'6 (4.70-6.10); RED CELL DISTRIBUTION WIDTH 16.8 % (11.5-14.5); WHITE BLOOD COUNT 3.9 X10'3 (4.5-11.0)
[2018-01-03 07:10] LABS: PLATELET COUNT 34 X10'3 (140-440)
[2018-01-03 07:13] LABS: INR 1.7 INR; PROTHROMBIN TIME 17.2 SECONDS (9.0-12.0)
[2018-01-03 07:24] LABS: ALANINE AMINOTRANSFERASE 23 U/L (12-78); ALBUMIN 2.8 G/DL (3.4-5.0); ALKALINE PHOSPHATASE 157 IU/L (46-116); ANION GAP 7 (8-16); ASPARTATE AMINO TRANSFERASE 23 U/L (10-37); BILIRUBIN,TOTAL 2.1 MG/DL (0.1-1.0); BLOOD UREA NITROGEN 28 MG/DL (7-18); BUN/CREATININE RATIO 11.7 (5.4-32.0); CHLORIDE 98 MMOL/L (99-107); CREATININE 2.39 MG/DL (0.60-1.10); GLUCOSE 100 MG/DL (70-104); MAGNESIUM 1.5 MG/DL (1.5-2.4); PHOSPHORUS 1.5 MG/DL (2.3-4.5); POTASSIUM 4.1 MMOL/L (3.5-5.1); SODIUM 133 MMOL/L (135-145); TOTAL CARBON DIOXIDE 28.5 MMOL/L (24-32); TOTAL PROTEIN 5.5 G/DL (6.4-8.2); VANCOMYCIN,RANDOM 25.4 UG/ML; eGFR 27 ML/MIN
[2018-01-03 07:35] VITALS: BP 100/67
[2018-01-03] MEDS: losartan 50mg tablet PO SCH (08:00)
[2018-01-03] MEDS: furosemide 40mg tablet PO SCH (08:00)
[2018-01-03] MEDS: nicotine 21mg patch - 24 hr TD SCH (08:00)
[2018-01-03] MEDS: metoprolol tartrate 12.5mg (1/2 tablet) PO SCH ×2 (08:00→20:00)
[2018-01-03 08:23] LABS: AFP,SERUM, TUMOR MARKER 1.3 ng/mL (0.0-8.3); CARCINOEMBRYONIC ANTIGEN 14.6 ng/mL (0.0-4.7)
[2018-01-03] MEDS: ipratropium/albuterol 3ml nebule NEB SCH ×3 (09:11→21:04)
[2018-01-03] MEDS: pantoprazole 40mg Tablet.DR PO SCH (09:12)
[2018-01-03] MEDS: docusate sod 100mg capsule PO SCH ×2 (09:13→20:35)
[2018-01-03] MEDS: celeCOXIB 100mg capsule PO SCH (09:13)
[2018-01-03] MEDS: magnesium oxide 400mg tablet PO SCH ×2 (09:13→20:35)
[2018-01-03] MEDS: folic acid 1mg tablet PO SCH (09:13)
[2018-01-03] MEDS: vitamin D (cholecalciferol) 1,000 unit tablet PO SCH (09:14)
[2018-01-03] MEDS: calcium carbonate 500mg tablet PO SCH (09:14)
[2018-01-03] MEDS: topiramate 25mg tablet PO SCH ×2 (09:14→20:35)
[2018-01-03 12:30] VITALS: BP_SYST 75; BP_SYST 79; BP_DIAS 43; BP_DIAS 44
[2018-01-03 20:06] VITALS: BP 77/48
[2018-01-03] MEDS: atorvastatin 20mg tablet PO SCH (20:34)
[2018-01-03] MEDS: terazosin 5mg capsule PO SCH (21:00)
[2018-01-03 21:31] VITALS: BP 93/54
[2018-01-03] MEDS ORDERED: VANCOMYCIN LEVEL IV ONE (23:30)
[2018-01-04] MEDS: oxyCODONE IR 5mg (immed. release) tablet PO PRN ×3 (00:08→16:54)
[2018-01-04 00:18] VITALS: BP 94/56
[2018-01-04 07:06] VITALS: BP 95/51
[2018-01-04 07:25] LABS: BASOPHILS % (AUTO) 0 % (0-1); EOSINOPHILS # (AUTO) 0.1 X10'3 (0-0.9); EOSINOPHILS % (AUTO) 1.2 % (0-6); HEMATOCRIT 22.7 % (42.0-52.0); HEMOGLOBIN 7.5 g/dl (14.0-17.9); LYMPHOCYTES # (AUTO) 0.4 X10'3 (1.1-4.8); LYMPHOCYTES % (AUTO) 7.5 % (21-51); MEAN CORPUSCULAR HEMOGLOBIN 31.4 PG (27.0-31.0); MEAN CORPUSCULAR HGB CONC 33.2 % (33.0-36.5); MEAN CORPUSCULAR VOLUME 94.6 FL (78-98); MEAN PLATELET VOLUME 8.9 FL (7.4-10.4); MONOCYTES # (AUTO) 0.3 X10'3 (0-0.9); MONOCYTES % (AUTO) 5.8 % (2-12); NEUTROPHILS # (AUTO) 4.3 X10'3 (1.8-7.7); NEUTROPHILS % (AUTO) 85.5 % (42-75); RED CELL DISTRIBUTION WIDTH 17.5 % (11.5-14.5); WHITE BLOOD COUNT 5.1 X10'3 (4.5-11.0)
[2018-01-04 07:32] LABS: INR 1.6 INR; PLATELET COUNT 38 X10'3 (140-440); PROTHROMBIN TIME 16.7 SECONDS (9.0-12.0)
[2018-01-04 07:44] LABS: ALANINE AMINOTRANSFERASE 19 U/L (12-78); ALBUMIN 2.6 G/DL (3.4-5.0); ALKALINE PHOSPHATASE 171 IU/L (46-116); ANION GAP 5 (8-16); ASPARTATE AMINO TRANSFERASE 22 U/L (10-37); BILIRUBIN,TOTAL 1.7 MG/DL (0.1-1.0); BLOOD UREA NITROGEN 40 MG/DL (7-18); BUN/CREATININE RATIO 13.3 (5.4-32.0); CALCIUM 7.9 MG/DL (8.5-10.1); CHLORIDE 98 MMOL/L (99-107); GLUCOSE 107 MG/DL (70-104); MAGNESIUM 1.4 MG/DL (1.5-2.4); PHOSPHORUS 1.7 MG/DL (2.3-4.5); POTASSIUM 4.5 MMOL/L (3.5-5.1); SODIUM 132 MMOL/L (135-145); TOTAL CARBON DIOXIDE 28.7 MMOL/L (24-32); TOTAL PROTEIN 5.3 G/DL (6.4-8.2); VANCOMYCIN,RANDOM 33.8 UG/ML; eGFR 21 ML/MIN
[2018-01-04] MEDS ORDERED: normal saline 1000ml 250 ML IV PRN (08:00)
[2018-01-04] MEDS ORDERED: heparin 1,000unit/ml 10ml vial 10 ML IV ONE (08:00)
[2018-01-04] MEDS: metoprolol tartrate 12.5mg (1/2 tablet) PO SCH (08:00)
[2018-01-04] MEDS ORDERED: albumin (human) 25% 100ml IV 100 ML IV PRN (08:00)
[2018-01-04] MEDS ORDERED: epoetin 20,000 units/ml inj IV ONE (08:00)
[2018-01-04] MEDS: nicotine 21mg patch - 24 hr TD SCH (08:00)
[2018-01-04] MEDS ORDERED: LIDOcaine 1% (10mg/ml) 2ml vial SQ ONE (08:00)
[2018-01-04] MEDS: calcium carbonate 500mg tablet PO SCH (08:22)
[2018-01-04] MEDS: topiramate 25mg tablet PO SCH (08:22)
[2018-01-04] MEDS: docusate sod 100mg capsule PO SCH (08:22)
[2018-01-04] MEDS: folic acid 1mg tablet PO SCH (08:22)
[2018-01-04] MEDS: pantoprazole 40mg Tablet.DR PO SCH (08:22)
[2018-01-04] MEDS: vitamin D (cholecalciferol) 1,000 unit tablet PO SCH (08:22)
[2018-01-04] MEDS: celeCOXIB 100mg capsule PO SCH (08:22)
[2018-01-04] MEDS: magnesium oxide 400mg tablet PO SCH (08:22)
[2018-01-04] MEDS: ipratropium/albuterol 3ml nebule NEB SCH ×2 (08:39→15:19)
[2018-01-04 11:42] VITALS: BP 94/51
[2018-01-04] MEDS ORDERED: clindamycin 150mg capsule PO SCH (16:00)
[2018-01-05] MEDS ORDERED: vancomycin inj. 750 MG in normal saline 250ml IV soln 250 ML IV SCH ×2
[2018-01-07] MEDS ORDERED: VANCOMYCIN LEVEL IV ONE (23:30)
== END 2018-01-04 18:28 | DRG 190 ==
LOC: ER 19:32 → ED HOLD 12-30 01:28 → SUR 3N 12-30 02:50
PROC: 5A1D70Z Performance of Urinary Filtration, Intermittent, Less than 6 Hours Per Day (ICD-10-PCS; 2017-12-30)
PROC: 5A1D70Z Performance of Urinary Filtration, Intermittent, Less than 6 Hours Per Day (ICD-10-PCS; 2018-01-02)
PROC: 5A1D70Z Performance of Urinary Filtration, Intermittent, Less than 6 Hours Per Day (ICD-10-PCS; principal; 2018-01-04)
DX: J44.1 Chronic obstructive pulmonary disease with (acute) exacerbation (principal); N18.6 End stage renal disease; N17.9 Acute kidney failure, unspecified; E87.1 Hypo-osmolality and hyponatremia; I13.2 Hypertensive heart and chronic kidney disease with heart failure and with stage 5 chronic kidney disease, or end stage renal disease; I50.9 Heart failure, unspecified; M54.9 Dorsalgia, unspecified; F12.90 Cannabis use, unspecified, uncomplicated; L97.513 Non-pressure chronic ulcer of other part of right foot with necrosis of muscle; W18.39XA Other fall on same level, initial encounter; L89.150 Pressure ulcer of sacral region, unstageable; I73.9 Peripheral vascular disease, unspecified; I25.10 Atherosclerotic heart disease of native coronary artery without angina pectoris; B95.5 Unspecified streptococcus as the cause of diseases classified elsewhere; K59.00 Constipation, unspecified; F17.210 Nicotine dependence, cigarettes, uncomplicated; I25.2 Old myocardial infarction; Z99.2 Dependence on renal dialysis; Z88.0 Allergy status to penicillin; Z88.8 Allergy status to other drugs, medicaments and biological substances; Z79.899 Other long term (current) drug therapy; Z79.01 Long term (current) use of anticoagulants; Z86.711 Personal history of pulmonary embolism; Z87.01 Personal history of pneumonia (recurrent); Z80.3 Family history of malignant neoplasm of breast; Z82.49 Family history of ischemic heart disease and other diseases of the circulatory system; Z83.3 Family history of diabetes mellitus; Y93.89 Activity, other specified; Y92.89 Other specified places as the place of occurrence of the external cause; Y99.8 Other external cause status
CPT/HCPCS: 36415; 36600; 70450; 71250; 72125; 74176; 80053; 80202; 80305; 80320; 81001; 82103; 82378; 82803; 82948; 83605; 83735; 83880; 84100; 84145; 84484; 85007; 85018; 85025; 85610; 85730; 86301; 87040; 87070; 87077; 87088; 87186; 93005; 94640; 94760; 96374; 97110; 97161; 97164; 97530; 99285; A4353; A4649; A6212; A6213; A6222; A6223; A6253; A6255; A6258; A6402; A6446; A6449; G0257; J0885; J1644; J2270; J3010; J3370; J3490; J7030; P9047